=== PATIENT | female | born 1945 | race Caucasian/White ===

== ENCOUNTER 2023-01-08 15:44 | Emergency (ER) | payer SELFPAY ==
[~2023-01-08] VITALS: Ht 149.9 cm; Wt 53.1 kg
[2023-01-08 16:18] VITALS: BP 166/95
--- NOTE | 2023-01-08 16:27 | NUR ---
blood glucose 164
[2023-01-08] MEDS ORDERED: NACL 0.9% 1,000 ML IV SCH (17:35)
[2023-01-08 17:52] LABS: BASOPHILS # (AUTO) 0.1 K/uL (0.00-0.22); BASOPHILS % (AUTO) 0.5 % (0.0-2.0); EOSINOPHILS # (AUTO) 1.3 K/uL (0-0.4); EOSINOPHILS % (AUTO) 12.9 % (0.0-4.0); HEMATOCRIT 37.4 % (36-48); HEMOGLOBIN 12.4 g/dL (12.0-16.0); MEAN CORPUSCULAR HEMOGLOBIN 29 pg (27-31); MEAN CORPUSCULAR HGB CONC 33 g/dL (33-37); MEAN CORPUSCULAR VOLUME 86.4 fL (80-94); MONOCYTES # (AUTO) 0.7 K/uL (0.8-1.0); MONOCYTES % (AUTO) 7.2 % (1.7-9.3); NEUTROPHILS # (AUTO) 4.7 K/uL (1.8-7.7); NEUTROPHILS % (AUTO) 48.4 % (42.2-75.2); PLATELET COUNT (AUTO) 334 K/uL (140-450); RED BLOOD CELL COUNT(AUTO) 4.33 MIL/uL (4.20-5.40); RED CELL DISTRIBUTION WIDTH 15.3 % (11.6-13.7); WHITE BLOOD COUNT (AUTO) 9.7 K/uL (4.8-10.8)
[2023-01-08 18:16] LABS: ALBUMIN 3.6 g/dL (3.4-5.0); ANION GAP 15.5 (8-16); ASPARTATE AMINOTRANSFERASE 27 U/L (15-37); CHLORIDE 101 mmol/L (98-107); CREATININE 0.8 mg/dL (0.6-1.3); GLUCOSE 136 mg/dL (74-106); POTASSIUM 4.5 mmol/L (3.5-5.1); SODIUM SERUM 137 mmol/L (136-145); TOTAL BILIRUBIN 0.3 mg/dL (0.0-1.0); UREA NITROGEN, BLOOD 21 mg/dL (7-18)
--- NOTE | 2023-01-08 20:05 | NUR ---
Patient endorsed by Kris AGUILAR. Patient alert and comfortable in bed. No complaints of pain or signs of distress.
[2023-01-08] MEDS ORDERED: BACITRACIN OINT 500 UNITS/GM PKT TP ONE (20:35)
[2023-01-08] MEDS ORDERED: [UNRECOGNIZED DRUG - CODE] PO (20:38)
[2023-01-08] MEDS ORDERED: ALPH600C2 PO (20:38)
[2023-01-08] MEDS ORDERED: [UNRECOGNIZED DRUG - CODE] PO (20:38)
[2023-01-08] MEDS ORDERED: DULO60EC1 PO (20:38)
[2023-01-08] MEDS ORDERED: GABA300C PO (20:41)
[2023-01-08] MEDS ORDERED: CEPH-588 PO (20:41)
[2023-01-08 21:10] VITALS: BP 184/92
--- NOTE | 2023-01-08 21:10 | NUR ---
Patient discharged with v/s stable. Written and verbal after care instructions given and explained. New rx keflex and gabapentin. Patient verbalized understanding. Ambulatory with steady gait. Accompanied by daughter. All questions addressed prior to discharge. Advised to follow up with PMD.
== END 2023-01-08 21:10 | disposition home or self-care (01) ==
LOC: MED 15:44 → EDBD 15:44 → MED 21:10
DX: E11.621 Type 2 diabetes mellitus with foot ulcer (principal); Z20.822 Contact with and (suspected) exposure to COVID-19; I10 Essential (primary) hypertension; Z79.4 Long term (current) use of insulin; Z79.899 Other long term (current) drug therapy
CPT/HCPCS: 36415; 71045; 73630; 80053; 82550; 82948; 83605; 84484; 85025; 87040; 87086; 87426; 93005; 96360; 99285; J7030; Q0092

== ENCOUNTER 2023-01-14 21:48 | Inpatient (IN) | payer SELFPAY ==
[~2023-01-14] VITALS: Ht 149.9 cm; Wt 53.1 kg
[~2023-01-14 21:48] MED LIST: ALPH600C2 PO; CEPH-588 PO; DULO60EC1 PO; GABA300C PO; [UNRECOGNIZED DRUG - CODE] PO; [UNRECOGNIZED DRUG - CODE] PO
[2023-01-14 21:50] VITALS: BP 102/88
--- NOTE | 2023-01-14 21:50 | NUR ---
TO BED AMBULATORY
--- NOTE | 2023-01-14 22:17 | NUR ---
Patient resting in bed, A/Ox4, chest rise and fall symmetrical, no s/s of distress, on monitor.
--- NOTE | 2023-01-14 22:19 | NUR ---
Dr. Agustin at bedside assessing patient, patient's daughter present.
[2023-01-14 22:58] LABS: BASOPHILS # (AUTO) 0.1 K/uL (0.00-0.22); BASOPHILS % (AUTO) 0.8 % (0.0-2.0); EOSINOPHILS # (AUTO) 1.2 K/uL (0-0.4); EOSINOPHILS % (AUTO) 13.2 % (0.0-4.0); HEMATOCRIT 38.5 % (36-48); HEMOGLOBIN 12.6 g/dL (12.0-16.0); LYMPHOCYTES # (AUTO) 2.4 K/uL (2.5-16.5); LYMPHOCYTES % (AUTO) 26.9 % (20.5-51.1); MEAN CORPUSCULAR HEMOGLOBIN 28 pg (27-31); MEAN CORPUSCULAR HGB CONC 33 g/dL (33-37); MEAN CORPUSCULAR VOLUME 86.3 fL (80-94); MONOCYTES # (AUTO) 0.7 K/uL (0.8-1.0); MONOCYTES % (AUTO) 8.1 % (1.7-9.3); NEUTROPHILS # (AUTO) 4.6 K/uL (1.8-7.7); PLATELET COUNT (AUTO) 340 K/uL (140-450); RED BLOOD CELL COUNT(AUTO) 4.45 MIL/uL (4.20-5.40); RED CELL DISTRIBUTION WIDTH 15.6 % (11.6-13.7)
[2023-01-14] MEDS ORDERED: BACITRACIN OINT 500 UNITS/GM PKT TP ONE (23:20)
[2023-01-14] MEDS ORDERED: FUROSEMIDE 20 MG/2 ML VIAL IVP ONE (23:20)
[2023-01-14] MEDS ORDERED: traMADol 50 MG TAB PO ONE (23:20)
[2023-01-14 23:28] LABS: ALBUMIN 3.5 g/dL (3.4-5.0); ANION GAP 12.4 (8-16); ASPARTATE AMINOTRANSFERASE 60 U/L (15-37); CARBON DIOXIDE 27.1 mmol/L (21-32); CHLORIDE 102 mmol/L (98-107); CREATININE 0.7 mg/dL (0.6-1.3); GLUCOSE 225 mg/dL (74-106); POTASSIUM 4.5 mmol/L (3.5-5.1); SODIUM SERUM 137 mmol/L (136-145); TOTAL BILIRUBIN 0.2 mg/dL (0.0-1.0); UREA NITROGEN, BLOOD 31 mg/dL (7-18)
[2023-01-14] MEDS ORDERED: ASPIRIN 81 MG TAB.CHEW PO ONE (23:35)
[2023-01-14] MEDS ORDERED: DOCUSATE SODIUM 100 MG GELCAP PO PRN (23:55)
[2023-01-14] MEDS ORDERED: guaiFENesin DM 200/20 MG-10 ML 10 ML UDC PO PRN (23:55)
[2023-01-14] MEDS ORDERED: ONDANSETRON 4 MG/2 ML VIAL IM/IVP PRN (23:55)
[2023-01-14] MEDS ORDERED: POTASSIUM CHLORIDE 10 MEQ TABER PO PRN (23:55)
[2023-01-14] MEDS ORDERED: GABAPENTIN 300 MG CAP PO PRN (23:55)
[2023-01-14] MEDS ORDERED: ZOLPIDEM 5 MG TAB PO PRN (23:55)
[2023-01-14] MEDS ORDERED: ACETAMINOPHEN 325 MG TAB PO PRN (23:55)
[2023-01-15 00:12] LABS: PROTHROMBIN TIME 10.7 secs (10.8-13.4)
--- NOTE | 2023-01-15 00:19 | NUR ---
Patient resting in bed, A/Ox4, chest rise and fall symmetrical, no s/s of distress, on monitor.
[2023-01-15 00:26] LABS: CHOL/HDL RATIO 3.9 (1-4.5); MAGNESIUM 2.7 mg/dL (1.8-2.4); PHOSPHORUS 4.1 mg/dL (2.5-4.9)
[2023-01-15 00:27] LABS: FREE T4 (FREE THYROXINE) 0.86 ng/dL (0.76-1.46); THYROID STIMULATING HORMONE 7.84 uIU/mL (0.34-3.74)
[2023-01-15 00:48] LABS: APPEARANCE,URINE SL CLOUDY (CLEAR); BILIRUBIN,URINE NEGATIVE (NEGATIVE); BLOOD, URINE 1+ (NEGATIVE); COLOR,URINE YELLOW (YELLOW); LEUKOCYTE ESTERASE ,URINE 1+ (NEGATIVE); NITRITE, URINE NEGATIVE (NEGATIVE); PH,URINE 6.5 (5.0-9.0); UGLUCOSE 3+ (NEGATIVE)
[2023-01-15] MEDS ORDERED: lisinopriL 20 MG TAB PO STA (01:02)
--- NOTE | 2023-01-15 01:04 | NUR ---
Patient resting in bed, alert and awake, chest rise and fall symmetrical, no c/o pain or s/s of distress, on monitor. Addendum: 01/15/23 at 0105 by [id number] Patient resting in bed, A/Ox4, chest rise and fall symmetrical, no c/o pain or s/s of distress, on monitor.
[2023-01-15 01:35] LABS: RBC,URINE 0-5 /HPF (0-5)
[2023-01-15] MEDS ORDERED: DEXTROSE 50% 50 ML SYR IVP PRN ×2 (01:35→08:30)
[2023-01-15] MEDS ORDERED: INSULIN LISPRO SLIDING SCALE 100 UNITS/ML VIAL SUBQ PRN (01:35)
--- NOTE | 2023-01-15 01:42 | NUR ---
Dr. Comer contacted via phone for sliding sclae order. Dr. Comer responded with, "How is this important?" Dr. Comer informed that staff is attemtping to cover patient's blood sugar, blood sugar lab draw result was 225, and pt as a hx of DM. Dr. Comer responded with "Non emergent." Telemetry Nurse Liza RN verbally informed. Telemetry Nurse Liza RN verbalized understanding.
--- NOTE | 2023-01-15 01:45 | NUR ---
Patient will be admitted to care of Dr. Comer. Admited to telemetry. Will go to room 122B. Belongings list completed. Report to Telemetry Nurse Liza AGUILAR. Telemetry Nurse Liza AGUILAR verbalized understanding of report, no further questions.
--- NOTE | 2023-01-15 01:54 | NUR ---
ADMITTED A 77 Y/O FEMALE FROM ER VIA [facility] WITH THE CC: OF SOB 7 DAYS AGO, DX: CHF, PNA, PNEUMOTHORAX, ACS, DIABETIC ULCERS. PATIENT IS ALERT ORIENTED KINYARWANDA SPEAKING. NO ACUTE DISTRESS NOTED. ON 3L O2 VIA NC SATING 98%. ABLE TO AMBULATE WITHOUT ASSIST. CALL LIGHT WITHIN REACH. BED WHEELS LOCKED IN LOW POSITION.
[2023-01-15] MEDS: HYDROcodone/APAP 7.5/325 MG 1 TAB PO PRN ×3 (03:18→20:47)
[2023-01-15 04:00] VITALS: BP 141/77
[2023-01-15 05:27] LABS: BASOPHILS # (AUTO) 0.1 K/uL (0.00-0.22); BASOPHILS % (AUTO) 0.7 % (0.0-2.0); EOSINOPHILS # (AUTO) 1.4 K/uL (0-0.4); EOSINOPHILS % (AUTO) 11.5 % (0.0-4.0); HEMATOCRIT 36.9 % (36-48); HEMOGLOBIN 12.1 g/dL (12.0-16.0); MEAN CORPUSCULAR HEMOGLOBIN 29 pg (27-31); MEAN CORPUSCULAR HGB CONC 33 g/dL (33-37); MEAN CORPUSCULAR VOLUME 86.6 fL (80-94); MONOCYTES % (AUTO) 8.1 % (1.7-9.3); NEUTROPHILS # (AUTO) 6.6 K/uL (1.8-7.7); NEUTROPHILS % (AUTO) 54.7 % (42.2-75.2); PLATELET COUNT (AUTO) 344 K/uL (140-450); RED BLOOD CELL COUNT(AUTO) 4.26 MIL/uL (4.20-5.40); RED CELL DISTRIBUTION WIDTH 15.4 % (11.6-13.7)
[2023-01-15 06:23] LABS: CARBON DIOXIDE 27.8 mmol/L (21-32); CHLORIDE 102 mmol/L (98-107); CREATININE 0.8 mg/dL (0.6-1.3); GLUCOSE 207 mg/dL (74-106); POTASSIUM 3.8 mmol/L (3.5-5.1); SODIUM SERUM 138 mmol/L (136-145); UREA NITROGEN, BLOOD 27 mg/dL (7-18)
--- NOTE | 2023-01-15 07:00 | NUR ---
RECEIVED BEDSIDE REPORT FROM NIGHTSHIFT NURSE. PT IS ASLEEP IN BED, WOKE TO NAME AND TOUCH, NO SIGNS OF DISTRESS. VITAL SIGNS STABLE. REORIENTED PT TO CALL LIGHT, MADE SURE WITHIN REACH. BED IN LOWEST POSITION. NO FURTHER NEEDS ARE TO BE MET AT THIS TIME, WILL CONTINUE WITH PT CARE.
--- NOTE | 2023-01-15 07:16 | NUR ---
BEDSIDE REPORT GIVEN TO AM NURSE FOR CONTINUITY OF CARE.
[2023-01-15] MEDS ORDERED: BLOOD GLUCOSE MONITORING 1 DEV DEV FS SCH (07:30)
[2023-01-15 08:00] VITALS: BP 121/85
--- NOTE | 2023-01-15 08:52 | NUR ---
PATIENT HAS BEEN SCREENED AND CATEGORIZED HIGH NUTRITION RISK. PATIENT WILL BE SEEN WITHIN 1-2 DAYS OF ADMISSION. 01/15/23-01/16/[address]
--- NOTE | 2023-01-15 08:56 | NUR ---
DC PLANN[age] YRS OLD FEMALE PATIENT WAS ADMITTED FROM HOME WITH A DX OF ACUTE CHF EXACERBATION, NSTEMI AND HYPOXIA. PATIENT HAS A HX OF DM, HTN, CARDIAC STENT PLACEMENT. CXR SHOWED BILATERAL LOWER LOBE PATCHY OPACITIES. RAPID COVID TEST NEGATIVE. URINE AND BLOOD CULTURE PENDING. ADMINISTERED IV ABX ROCEPHIN AND CONTINUED HOME MEDS. CONSULTED WITH WOUND CARE, AND CARDIO. DC PLAN TO RETURN HOME WHEN STABLE. CM TO FOLLOW
[2023-01-15] MEDS ORDERED: METOPROLOL 25 MG TAB PO SCH (09:00)
[2023-01-15] MEDS ORDERED: FUROSEMIDE 40 MG/4 ML VIAL IVP SCH (09:00)
--- NOTE | 2023-01-15 09:05 | NUR ---
FNS CONSULT FOR WOUNDS RECEIVED ON 01/15/23, PATIENT WILL BE SEEN WITHIN 1-2 DAYS OF ADMISSION.
--- NOTE | 2023-01-15 09:05 | NUR ---
WOUND CARE NOTE SKIN ASSESSMENT DONE WITH THIS 77 Y/O PT. AAX4. PT. ADMITTED WITH MULTIPLE ULCERS TO LEFT FOOT. POC DISCUSSED WITH DR. CROFT AT BEDSIDE AND RECOMMEND ARTERIAL ULTRASOUND TO LLE AND PODIATRY CONSULT. POC DISCUSSED WITH PRIMARY RN BAILEY. -PVD LEFT LATERAL FOOT 2 ULCERATIONS UN-STAGEABLE SITE #1 2.5X2.5CM WOUND BED 100% BROWN AND MONTALVO COLOR SLOUGH TISSUE, MILD ODOR SMALL AMOUNT PURULENT DRAINAGE, FERNANDO-WOUND SKIN DRY AND CLEAN. SITE #2 WITH 2X2CM. WOUND BEDS 100% BROWN/MONTALVO, MOIST SLOUGH TISSUE, MILD ODOR SMALL AMOUNT PURULENT DRAINAGE, FERNANDO-WOUND SKIN DRY AND CLEAN. PAIN 3/10 -PVD UN-STAGEABLE TO LATERAL ASPECT OF HEEL 2X4CM WOUND BED 50% BROWN AND MONTALVO COLOR SLOUGH TISSUE,50 % RED TISSUE, NO ODOR, SMALL AMOUNT PURULENT DRAINAGE, FERNANDO-WOUND SKIN DRY AND CLEAN. -PVD LEFT HEEL 1X1X0.3CM WOUND BED 100% PINK TISSUE, NO ODOR, NO DRAINAGE, FERNANDO-WOUND SKIN DRY AND CLEAN RECOMMENDATIONS: -WOUND CX LEFT FOOT -PODIATRY CONSULT -LEFT FOOT AND HEEL WOUNDS CLEANSE WITH WOUND CLEANSING SOLUTION, PAT DRY, APPLY THERAHONEY GEL WITH OIL EMULSION DRESSING, APPLY Z-GUARD TO FERNANDO-WOUND SKIN MASD COVER WITH DRY DRESSING QD AND PRN IF SOILING -HEEL RAISER TO LEFT HEEL WITH OFFLOADING PLEASE CONTACT WOUND CARE NURSE FOR ANY QUESTION AND CHANGE OF WOUND CONDITION.
--- NOTE | 2023-01-15 09:10 | NUR ---
PT SEEN BY WOUND CARE NURSE. WOUND CARE/WOUND ASSESSMENT DONE BY WOUND CARE NURSE. RECREATIONAL PROGRAMS DIRECTOR CONSULT ORDERED, INFORMED PODIATRY MD OF CONSULT. WILL CONTINUE WITH PT CARE.
[2023-01-15] MEDS: DULoxetine 30 MG CAPDR PO SCH ×2 (09:46→20:46)
[2023-01-15] MEDS: PANTOPRAZOLE 40 MG TABEC PO SCH (09:47)
[2023-01-15] MEDS: lisinopriL 20 MG TAB PO SCH (09:47)
[2023-01-15 12:00] VITALS: BP 122/82
[2023-01-15] MEDS: BLOOD GLUCOSE MONITORING 1 DEV DEV FS SCH ×3 (12:30→20:49)
[2023-01-15] MEDS: INSULIN LISPRO SLIDING SCALE 100 UNITS/ML VIAL SUBQ PRN ×2 (12:46→20:51)
--- NOTE | 2023-01-15 14:05 | NUR ---
01/15/23 RD INITIAL ASSESSMENT COMPLETED PLEASE REFER TO NUTRITION ASSESSMENT UNDER CARE ACTIVITY FOR ESTIMATED NUTRITIONAL NEEDS. 1. CONTINUE CARDIAC AND CCHO DIET TOLERATED 2. RD RECOMMENDS GLUCERNA BID FOR NUTRIENT INTAKE DUE TO LOW PO INTAKE. THIS WILL PROVIDE 440 CALORIES AND 20 GRAMS OF PROTEIN. PLEASE DISCONTINUE ONCE PATIENT STARTS TO EAT 50% OR MORE OF HER MEALS. 3. RD RECOMMENDS PROSOURCE BID FOR WOUNDS WHICH WILL PROVIDE 120 CALORIES AND 30 GRAMS OF PROTEIN. 4. RD ENCOURAGES PATIENT TO CONTINUE TO FOLLOW A DIABETIC DIET THAT SHE WAS EDUCATED ON ONCE SHE LEAVES THE HOSPITAL. 5. RD TO FOLLOW-UP 3-5 DAYS, MODERATE RISK KRUNAL DASH RD
[2023-01-15 14:19] LABS: BARBITURATE, URINE NEGATIVE ng/ml (NEG <=200); BENZODIAZEPINE, URINE NEGATIVE ng/mL (NEG <=200); CANNABINOID, URINE NEGATIVE ng/mL (NEG <=50); COCAINE, URINE NEGATIVE ng/mL (NEG <=300); PHENCYCLIDINE SCREEN,URINE NEGATIVE ng/mL (NEG <=25)
[2023-01-15 14:20] LABS: OPIATE, URINE POSITIVE ng/mL (NEG <=2000)
[2023-01-15] MEDS ORDERED: THERAHONEY GEL 42.5 GM TP PRN (14:35)
[2023-01-15 16:00] VITALS: BP 149/67
[2023-01-15] MEDS ORDERED: ATORVASTATIN 20 MG TAB PO SCH (17:00)
[2023-01-15] MEDS: FUROSEMIDE 40 MG/4 ML VIAL IVP SCH (17:26)
--- NOTE | 2023-01-15 19:27 | NUR ---
ENDORSED TO NIGHTSHIFT NURSE FOR CONTINUITY OF CARE. PT IS RESTING IN BED, STABLE, NO SIGNS OF DISTRESS, NO REPORTS OF PAIN/DISCOMFORT AT THIS TIME. PT DAUGHTER AT BEDSIDE. NO FURTHER NEEDS ARE TO BE MET, NIGHTSHIFT NURSE WILL CONTINUE WITH PT CARE.
[2023-01-15 20:00] VITALS: BP 153/77
[2023-01-15] MEDS: GABAPENTIN 300 MG CAP PO SCH (20:45)
--- NOTE | 2023-01-15 20:45 | NUR ---
ALL 2100 SCHEDULED DUE MEDICATIONS ADMINISTERED. PATIENT ALERT ORIENTED LUXEMBOURGISH SPEAKING, RESTING IN BED. NO SOB NOTED. ON 3L NC TOLERATING WELL. CALL LIGHT IN REACH.
[2023-01-15] MEDS: carvediloL 6.25 MG TAB PO SCH (20:46)
[2023-01-16] MEDS: HYDROcodone/APAP 7.5/325 MG 1 TAB PO PRN ×3 (01:25→15:58)
[2023-01-16 04:00] VITALS: BP 142/77
[2023-01-16 05:26] LABS: BASOPHILS # (AUTO) 0.1 K/uL (0.00-0.22); BASOPHILS % (AUTO) 0.7 % (0.0-2.0); EOSINOPHILS # (AUTO) 1.2 K/uL (0-0.4); EOSINOPHILS % (AUTO) 12.4 % (0.0-4.0); HEMATOCRIT 37.6 % (36-48); HEMOGLOBIN 12.7 g/dL (12.0-16.0); LYMPHOCYTES # (AUTO) 2.8 K/uL (2.5-16.5); LYMPHOCYTES % (AUTO) 28.4 % (20.5-51.1); MEAN CORPUSCULAR HEMOGLOBIN 29 pg (27-31); MEAN CORPUSCULAR HGB CONC 34 g/dL (33-37); MONOCYTES # (AUTO) 0.7 K/uL (0.8-1.0); MONOCYTES % (AUTO) 7.3 % (1.7-9.3); NEUTROPHILS % (AUTO) 51.2 % (42.2-75.2); PLATELET COUNT (AUTO) 335 K/uL (140-450); RED BLOOD CELL COUNT(AUTO) 4.37 MIL/uL (4.20-5.40); RED CELL DISTRIBUTION WIDTH 15.3 % (11.6-13.7); WHITE BLOOD COUNT (AUTO) 9.7 K/uL (4.8-10.8)
[2023-01-16 05:40] LABS: ANION GAP 11.5 (8-16); CARBON DIOXIDE 29.4 mmol/L (21-32); CHLORIDE 100 mmol/L (98-107); CREATININE 0.7 mg/dL (0.6-1.3); GLUCOSE 145 mg/dL (74-106); POTASSIUM 3.9 mmol/L (3.5-5.1); SODIUM SERUM 137 mmol/L (136-145); UREA NITROGEN, BLOOD 23 mg/dL (7-18)
[2023-01-16 08:00] VITALS: BP 148/69
[2023-01-16] MEDS: BLOOD GLUCOSE MONITORING 1 DEV DEV FS SCH ×4 (08:19→21:00)
[2023-01-16 09:06] LABS: T4 (THYROXINE) 6.5 ug/dL (4.5-12.0)
[2023-01-16] MEDS: FUROSEMIDE 40 MG/4 ML VIAL IVP SCH ×2 (10:17→17:46)
[2023-01-16] MEDS: ECOTRIN 81 MG TABEC PO SCH (10:18)
[2023-01-16] MEDS: ATORVASTATIN 20 MG TAB PO SCH (10:18)
[2023-01-16] MEDS: lisinopriL 20 MG TAB PO SCH (10:18)
[2023-01-16] MEDS: DULoxetine 30 MG CAPDR PO SCH ×2 (10:18→20:58)
[2023-01-16] MEDS: carvediloL 6.25 MG TAB PO SCH ×2 (10:19→20:58)
[2023-01-16] MEDS: PANTOPRAZOLE 40 MG TABEC PO SCH (10:19)
[2023-01-16] MEDS: GABAPENTIN 300 MG CAP PO SCH ×2 (10:19→20:58)
[2023-01-16] MEDS ORDERED: THERAHONEY GEL 42.5 GM TP SCH (13:00)
[2023-01-16] MEDS: INSULIN LISPRO SLIDING SCALE 100 UNITS/ML VIAL SUBQ PRN (14:12)
[2023-01-16 16:00] VITALS: BP 129/65
--- NOTE | 2023-01-16 19:42 | NUR ---
AFTER 1630 BG CHECK, B. PROVIDED JUICE AND SUGAR PACKETS FOR PT. PT BG NOW STABLE. ENDORSED TO NIGHTSHIFT NURSE FOR CONTINUITY OF CARE. PT RESTING IN BED, AWAKE, STABLE, NO SIGNS OF DISTRESS, NO REPORTS OF PAIN/DISCOMFORT. CALL LIGHT WITHIN REACH.
--- NOTE | 2023-01-16 19:43 | NUR ---
RECEIVED REPORT FROM DAY SHIFT RN FOR CONTINUITY OF CARE. PT IS RESTING IN BED. AAOX4 BERMUDIAN SPEAKER. PT HAS LEFT AC 20 GAUGE SALINE LOCK. PT IS AMBULATORY. GAIT STEADY. DRESSING ON LEFT FOOT. POC DISCUSSED. WILL CONTINUE TO MONITOR THE PT.
[2023-01-16 20:00] VITALS: BP 126/75
--- NOTE | 2023-01-16 23:05 | NUR ---
XRAY IN ROOM WITH PT TO TAKE XRAY OF THE LEFT FOOT.
[2023-01-17 04:00] VITALS: BP 143/60
[2023-01-17] MEDS: HYDROcodone/APAP 7.5/325 MG 1 TAB PO PRN ×2 (04:59→10:36)
--- NOTE | 2023-01-17 04:59 | NUR ---
PT COMPLAINED OF 5/10 PAIN ON LEFT FOOT. NORCO WAS GIVEN. NO OTHER COMPLAINS.
[2023-01-17 05:38] LABS: BASOPHILS % (AUTO) 0.4 % (0.0-2.0); EOSINOPHILS # (AUTO) 1.1 K/uL (0-0.4); EOSINOPHILS % (AUTO) 10.7 % (0.0-4.0); HEMATOCRIT 36.9 % (36-48); HEMOGLOBIN 12.3 g/dL (12.0-16.0); LYMPHOCYTES # (AUTO) 2.9 K/uL (2.5-16.5); LYMPHOCYTES % (AUTO) 28.4 % (20.5-51.1); MEAN CORPUSCULAR HEMOGLOBIN 29 pg (27-31); MEAN CORPUSCULAR HGB CONC 34 g/dL (33-37); MEAN CORPUSCULAR VOLUME 85.3 fL (80-94); MONOCYTES # (AUTO) 0.7 K/uL (0.8-1.0); MONOCYTES % (AUTO) 7.2 % (1.7-9.3); NEUTROPHILS # (AUTO) 5.4 K/uL (1.8-7.7); NEUTROPHILS % (AUTO) 53.3 % (42.2-75.2); PLATELET COUNT (AUTO) 360 K/uL (140-450); RED BLOOD CELL COUNT(AUTO) 4.32 MIL/uL (4.20-5.40); WHITE BLOOD COUNT (AUTO) 10.2 K/uL (4.8-10.8)
[2023-01-17 06:05] LABS: ANION GAP 11.5 (8-16); CARBON DIOXIDE 28.3 mmol/L (21-32); CHLORIDE 97 mmol/L (98-107); CREATININE 0.8 mg/dL (0.6-1.3); GLUCOSE 174 mg/dL (74-106); POTASSIUM 3.8 mmol/L (3.5-5.1); SODIUM SERUM 133 mmol/L (136-145); UREA NITROGEN, BLOOD 23 mg/dL (7-18)
[2023-01-17] MEDS: INSULIN LISPRO SLIDING SCALE 100 UNITS/ML VIAL SUBQ PRN ×2 (06:32→13:40)
[2023-01-17] MEDS: BLOOD GLUCOSE MONITORING 1 DEV DEV FS SCH ×2 (06:33→12:12)
--- NOTE | 2023-01-17 07:11 | NUR ---
ENDORSED PT TO DAY SHIFT RN FOR CONTINUITY OF CARE. PT IS STABLE.
[2023-01-17 08:00] VITALS: BP 145/64
[2023-01-17] MEDS: PANTOPRAZOLE 40 MG TABEC PO SCH (09:00)
[2023-01-17] MEDS: DULoxetine 30 MG CAPDR PO SCH (09:55)
[2023-01-17] MEDS: GABAPENTIN 300 MG CAP PO SCH (09:57)
[2023-01-17] MEDS: lisinopriL 20 MG TAB PO SCH (09:57)
[2023-01-17] MEDS: carvediloL 6.25 MG TAB PO SCH (09:57)
[2023-01-17] MEDS: ECOTRIN 81 MG TABEC PO SCH (09:57)
[2023-01-17] MEDS: ATORVASTATIN 20 MG TAB PO SCH (09:58)
[2023-01-17] MEDS: FUROSEMIDE 40 MG/4 ML VIAL IVP SCH (09:58)
[2023-01-17] MEDS ORDERED: FURO40TA9 PO (12:23)
[2023-01-17] MEDS ORDERED: LISI-487 PO (12:23)
[2023-01-17] MEDS ORDERED: CARV6.25 PO (12:23)
[2023-01-17] MEDS ORDERED: ATOR40TA PO (12:23)
[2023-01-17] MEDS ORDERED: CLOP75TA55 PO (12:23)
[2023-01-17] MEDS ORDERED: ASPI-1749 PO (12:23)
[2023-01-17] MEDS ORDERED: AMOX-999 PO (12:23)
[2023-01-17 12:37] VITALS: BP 101/69
--- NOTE | 2023-01-17 13:35 | NUR ---
CALLED [facility] LOCATED AT [address] [phone]. SPOKE WITH AUGUSTINE WHO WAS ABLE TO SCHEDULE A FOLLOW UP APPOINTMENT FOR 01/20/23 AT 1100. CALLED GRANDDAUGHTER KISHAN AND INFORMED HER OF THE ABOVE INFORMATION.
== END 2023-01-17 14:45 | disposition home or self-care (01) | DRG 280 ==
LOC: MED 21:48 → MTU 23:58
PROVIDERS: ADMIT Family Medicine; ATTEND Family Medicine
DX: I11.0 Hypertensive heart disease with heart failure (principal); I21.A1 Myocardial infarction type 2; I50.43 Acute on chronic combined systolic (congestive) and diastolic (congestive) heart failure; J96.00 Acute respiratory failure, unspecified whether with hypoxia or hypercapnia; J18.9 Pneumonia, unspecified organism; L03.116 Cellulitis of left lower limb; E03.8 Other specified hypothyroidism; Z20.822 Contact with and (suspected) exposure to COVID-19; I25.5 Ischemic cardiomyopathy; E11.621 Type 2 diabetes mellitus with foot ulcer; I25.10 Atherosclerotic heart disease of native coronary artery without angina pectoris; E78.5 Hyperlipidemia, unspecified; Z95.5 Presence of coronary angioplasty implant and graft
CPT/HCPCS: 36415; 71045; 73620; 80048; 80053; 80305; 81001; 82150; 82948; 83036; 83605; 83690; 83735; 83880; 84100; 84436; 84439; 84443; 84479; 84484; 85025; 85610; 85730; 87040; 87070; 87075; 87081; 87086; 93005; 93925; 93970; 96374; 99285; J0696; J1815; J1940; J7060; Q0092

== ENCOUNTER 2023-01-28 09:33 | Inpatient (IN) | payer SELFPAY ==
[2023-01-28] VITALS (7 sets, daily range): BP systolic 130–156; BP diastolic 60–79; PULSE 68–87; RESP 18–20; TEMP 97.4–98; O2SAT 97–99
[~2023-01-28] VITALS: Ht 152.4 cm; Wt 51.3 kg
[~2023-01-28 09:33] MED LIST changes: +AMOX-999 PO; +ASPI-1749 PO; +ATOR40TA PO; +CARV6.25 PO; -CEPH-588 PO; +CLOP75TA55 PO; +FURO40TA9 PO; +LISI-487 PO
[2023-01-28] MEDS ORDERED: MORPHINE SULFATE 2 MG/ML SYR IVP ONE (10:05)
--- NOTE | 2023-01-28 10:28 | NUR ---
77 YO F PRESENTS W/WEAKNESS, SOB X 1 WK WORSE TODAY. PT DENIES CP, N,V,D,C, FEVER, MENON, FLU SYMPTOMS. PT STATES SHE HAD A HEART ATTACK 06/2022. LT FOOT DIABETIC ULCER X 2 MTHS. SAFETY MAINTAINED. HX: DM, HTN
--- NOTE | 2023-01-28 10:41 | NUR ---
PT W/HYPOXIA - WHEN FALLING ASLEEP, AWAKE 94-98 Addendum: 01/28/23 at 1048 by [email or web address] INFORMED OF PT HYPOXIA
--- NOTE | 2023-01-28 10:44 | NUR ---
SWABBED FOR INFLUENZA A/B, WALKED TO LAB
[2023-01-28 10:45] LABS: BASOPHILS # (AUTO) 0.1 K/uL (0.00-0.22); BASOPHILS % (AUTO) 0.7 % (0.0-2.0); EOSINOPHILS % (AUTO) 11.4 % (0.0-4.0); HEMATOCRIT 36.1 % (36-48); LYMPHOCYTES # (AUTO) 1.9 K/uL (2.5-16.5); LYMPHOCYTES % (AUTO) 20.6 % (20.5-51.1); MEAN CORPUSCULAR HEMOGLOBIN 28 pg (27-31); MEAN CORPUSCULAR HGB CONC 33 g/dL (33-37); MEAN CORPUSCULAR VOLUME 84.4 fL (80-94); MONOCYTES # (AUTO) 0.7 K/uL (0.8-1.0); MONOCYTES % (AUTO) 7.8 % (1.7-9.3); NEUTROPHILS # (AUTO) 5.4 K/uL (1.8-7.7); NEUTROPHILS % (AUTO) 59.5 % (42.2-75.2); PLATELET COUNT (AUTO) 363 K/uL (140-450); RED BLOOD CELL COUNT(AUTO) 4.27 MIL/uL (4.20-5.40); WHITE BLOOD COUNT (AUTO) 9.1 K/uL (4.8-10.8)
[2023-01-28 10:58] LABS: MAGNESIUM 1.9 mg/dL (1.8-2.4)
[2023-01-28 11:01] LABS: ALBUMIN 3.6 g/dL (3.4-5.0); ANION GAP 14.4 (8-16); ASPARTATE AMINOTRANSFERASE 21 U/L (15-37); CARBON DIOXIDE 25.1 mmol/L (21-32); CHLORIDE 101 mmol/L (98-107); CREATININE 0.9 mg/dL (0.6-1.3); GLUCOSE 174 mg/dL (74-106); POTASSIUM 3.5 mmol/L (3.5-5.1); SODIUM SERUM 137 mmol/L (136-145); TOTAL BILIRUBIN 0.5 mg/dL (0.0-1.0); UREA NITROGEN, BLOOD 32 mg/dL (7-18)
[2023-01-28 11:17] LABS: C-REACTIVE PROTEIN QUANT < 0.2 mg/dL (0.0-0.9)
[2023-01-28] MEDS ORDERED: FUROSEMIDE 40 MG/4 ML VIAL IVP ONE (11:25)
[2023-01-28] MEDS ORDERED: HYDROcodone/APAP 5/325 MG 1 TAB TAB PO ONE (12:15)
[2023-01-28 12:35] LABS: APPEARANCE,URINE HAZY (CLEAR); COLOR,URINE YELLOW (YELLOW)
[2023-01-28 12:39] LABS: BILIRUBIN,URINE NEGATIVE (NEGATIVE); BLOOD, URINE NEGATIVE (NEGATIVE); LEUKOCYTE ESTERASE ,URINE NEGATIVE (NEGATIVE); NITRITE, URINE NEGATIVE (NEGATIVE); UGLUCOSE 3+ (NEGATIVE)
[2023-01-28] MEDS ORDERED: ONDANSETRON 4 MG/2 ML VIAL IVP PRN (13:20)
[2023-01-28] MEDS ORDERED: GABAPENTIN 300 MG CAP PO PRN (13:20)
[2023-01-28 13:37] LABS: CALCIUM OXALATE CRYSTALS,UR None Seen /HPF (None Seen); COARSE GRANULAR CASTS,URINE None Seen /LPF (None Seen); FINE GRANULAR CASTS,URINE None Seen /LPF (None Seen); HYALINE CASTS, URINE None Seen /LPF (None Seen); OTHER CASTS, URINE None Seen /LPF (None Seen); OTHER CRYSTALS,URINE None Seen /HPF (None Seen); RBC,URINE 0-5 /HPF (0-5); RED BLOOD CELL CASTS,URINE None Seen /LPF (None Seen); TRICHOMONAS,URINE None Seen /HPF (None Seen); TRIPLE PHOSPHATE CRYSTAL,UR None Seen /HPF (None Seen); URIC ACID CRYSTALS,URINE None Seen /HPF (None Seen); URINE AMORPHOUS URATE None Seen /HPF (None Seen); WAXY CASTS,URINE None Seen /LPF (None Seen); YEAST,URINE None Seen /HPF (None Seen)
--- NOTE | 2023-01-28 13:56 | NUR ---
GLUCOSE 159, MD AWARE
--- NOTE | 2023-01-28 15:10 | NUR ---
Patient will be admitted to care of NEELY. Admited to TELE. Will go to room 124B. Belongings list completed. Report to FLORENTIN AGUILAR.
--- NOTE | 2023-01-28 15:15 | NUR ---
PATIENT HAS BEEN SCREENED AND CATEGORIZED MODERATE NUTRITION RISK. PATIENT WILL BE SEEN WITHIN 3-5 DAYS OF ADMISSION. 01/31/23-02/02/[address]
--- NOTE | 2023-01-28 15:35 | NUR ---
The patient's care was reviewed and supervised by ED Agency Nurse 7, RN, RN.
--- NOTE | 2023-01-28 16:49 | NUR ---
admitted the patinet from emergency room rn darnell hopson serbian speaking with admitting diagnosis of congestive heart problem . will continue to monitor
[2023-01-28] MEDS: FUROSEMIDE 40 MG/4 ML VIAL IVP SCH (17:32)
[2023-01-28] MEDS: HYDROcodone/APAP 5/325 MG 1 TAB TAB PO PRN ×2 (17:33→21:37)
--- NOTE | 2023-01-28 17:43 | NUR ---
patient complain of pain left foot . norco was administered. will continue to monitor
--- NOTE | 2023-01-28 19:30 | NUR ---
RECEIVED REPORT FROM DAY SHIFT NURSE DONOVAN FOR CONTINUITY OF CARE. PATIENT IS A&O X4; BENGALI SPEAKING. PATIENT IS ON 2L NC. BREATHING IS NORMAL WITH SYMMETRICAL RISE AND FALL OF CHEST. IV IS A 20G LAC; NO FLUIDS RUNNING AT THIS TIME. PATIENT IS SITTING IN HIGH-FOWLERS POSITION VISITING WITH GRANDDAUGHTER. BED IS IN LOWEST POSITION, WHEELS LOCKED, CALL LIGHT IN PLACE. WILL CONTINUE TO OBSERVE PATIENT.
--- NOTE | 2023-01-28 19:34 | NUR ---
will endorse to evidence specialist rn for continuity of care
[2023-01-28] MEDS: DULoxetine 30 MG CAPDR PO SCH (21:27)
[2023-01-28] MEDS: carvediloL 6.25 MG TAB PO SCH (21:27)
--- NOTE | 2023-01-28 21:40 | NUR ---
ADMINISTERED 2100 MEDICATIONS TO PATIENT. MEDICATION ADMINISTERED SUCCESSFULLY WITHOUT ANY ISSUES WITH SWALLOWING. PATIENT COMPLAINED OF 8/10 PAIN. CHECKED VITALS AND CHART; NORCO WAS APPROPRIATE TO ADMINISTER. MEDICATION ADMINISTERED SUCCESSFULLY.
[2023-01-29] VITALS: BP 151/76; PULSE 78; PULSE 81; RESP 18; TEMP 96.8; O2SAT 98
[2023-01-29] MEDS: HYDROcodone/APAP 5/325 MG 1 TAB TAB PO PRN ×3 (01:44→20:24)
--- NOTE | 2023-01-29 02:10 | NUR ---
PATIENT WAS GIVEN NORCO FOR FOOT PAIN BY CHARGE NURSE MAULIK. PATIENT IS NOW SLEEPING. MEDICATION WAS EFFECTIVE. WILL CONTINUE TO OBSERVE PATIENT.
[2023-01-29 04:00] VITALS: BP 154/78; PULSE 69; PULSE 70; RESP 18; TEMP 96.4; O2SAT 100
[2023-01-29 05:26] LABS: BASOPHILS # (AUTO) 0.1 K/uL (0.00-0.22); BASOPHILS % (AUTO) 0.7 % (0.0-2.0); EOSINOPHILS # (AUTO) 1.3 K/uL (0-0.4); EOSINOPHILS % (AUTO) 14.1 % (0.0-4.0); HEMATOCRIT 37.6 % (36-48); HEMOGLOBIN 12.7 g/dL (12.0-16.0); LYMPHOCYTES # (AUTO) 2.8 K/uL (2.5-16.5); LYMPHOCYTES % (AUTO) 30.2 % (20.5-51.1); MEAN CORPUSCULAR HEMOGLOBIN 28 pg (27-31); MEAN CORPUSCULAR HGB CONC 34 g/dL (33-37); MEAN CORPUSCULAR VOLUME 83.2 fL (80-94); MONOCYTES # (AUTO) 0.8 K/uL (0.8-1.0); MONOCYTES % (AUTO) 9.1 % (1.7-9.3); NEUTROPHILS # (AUTO) 4.2 K/uL (1.8-7.7); NEUTROPHILS % (AUTO) 45.9 % (42.2-75.2); PLATELET COUNT (AUTO) 387 K/uL (140-450); RED BLOOD CELL COUNT(AUTO) 4.52 MIL/uL (4.20-5.40); RED CELL DISTRIBUTION WIDTH 15.4 % (11.6-13.7); WHITE BLOOD COUNT (AUTO) 9.2 K/uL (4.8-10.8)
[2023-01-29 05:57] LABS: ANION GAP 15.2 (8-16); CARBON DIOXIDE 24.4 mmol/L (21-32); CHLORIDE 101 mmol/L (98-107); CREATININE 0.9 mg/dL (0.6-1.3); GLUCOSE 169 mg/dL (74-106); POTASSIUM 3.6 mmol/L (3.5-5.1); SODIUM SERUM 137 mmol/L (136-145); UREA NITROGEN, BLOOD 30 mg/dL (7-18)
[2023-01-29] MEDS ORDERED: DEXTROSE 50% 50 ML SYR IVP PRN (06:35)
[2023-01-29] MEDS: BLOOD GLUCOSE MONITORING 1 DEV DEV FS SCH ×4 (06:50→20:21)
[2023-01-29] MEDS: INSULIN LISPRO SLIDING SCALE 100 UNITS/ML VIAL SUBQ PRN ×2 (06:52→11:54)
--- NOTE | 2023-01-29 07:27 | NUR ---
ENDORSE TO DAY SHIFT NURSE ONI FOR CONTINUITY OF CARE. PATIENT IS STABLE.
--- NOTE | 2023-01-29 07:28 | NUR ---
RECEIVED REPORT FROM CLINICAL EDUCATION ASSISTANT NURSE, CLOTILDE, FOR CONTINUITY OF CARE. PT IN BED AT THIS TIME, RESPIRATIONS ARE EVEN AND UNLABORED, PT IS ON 2L 02 VIA NC. PT IS ALERT AND ORIENTED X4, ABLE TO VERBALIZE NEEDS, ABLE TO FOLLOW COMMANDS. PT IS CITIZEN OF [place] SPEAKING. ADMITTING DX IS CHF EXACERBATION. ABD IS NONTENDER, NONDISTENDED WITH BOWEL SOUNDS PRESENT. PT IS ON CARDIAC/CCHO DIET. TOLERATING WELL. PT IS CONTINENT OF BOWEL AND BLADDER, PT ON BED REST AT THIS TIME. PT HAS PURE WIK IN PLACE AT THIS TIME. PT HAS DM FOOT ULCER TO L FOOT, HAS ORDER FOR WOUND CONSULT. PT HAS IV TO LAC 20G,L SALINE LOCKED. CALL LIGHT WITHIN REACH. ALL SAFETY MEASURES IN PLACE.
[2023-01-29 08:00] VITALS: BP 159/78; PULSE 77; PULSE 81; RESP 18; TEMP 98.3; O2SAT 100; O2SAT 99
[2023-01-29] MEDS: DULoxetine 30 MG CAPDR PO SCH ×2 (08:49→20:19)
[2023-01-29] MEDS: ATORVASTATIN 20 MG TAB PO SCH (08:50)
[2023-01-29] MEDS: ASPIRIN 81 MG TAB.CHEW PO SCH (08:50)
[2023-01-29] MEDS: carvediloL 6.25 MG TAB PO SCH (08:51)
[2023-01-29] MEDS: CLOPIDOGREL 75 MG TAB PO SCH (08:52)
[2023-01-29] MEDS ORDERED: lisinopriL 20 MG TAB PO SCH (09:00)
[2023-01-29] MEDS: ENOXAPARIN 40 MG/0.4 ML SYR SUBQ SCH (09:00)
--- NOTE | 2023-01-29 09:00 | NUR ---
ADMINISTERED ALL SCHEDULED MEDICATIONS. EDUCATED PT ON MEDS ADMINISTERED. PT ALSO COMPLAINING OF PAIN. STATES PAIN IS 8/10. MEDICATED.
--- NOTE | 2023-01-29 09:21 | NUR ---
PT CALLED NURSE, ASKED NURSE TO UPDATE FAMILY ON PLAN OF CARE. UPDATED FAMILY. ANSWERED ALL QUESTIONS.
--- NOTE | 2023-01-29 09:35 | NUR ---
PT CALLED NURSE AGAIN, ASKING FOR NURSE TO UPDATE NEW FAMILY MEMBERS AT BED SIDE. UPDATED FAMILY. ALSO EDUCATED PT FAMILY ON PT DIET WHILE SHE IS HOSPITALIZED, PT FAMILY HAD BROUGHT PT PLENTY OF FLUIDS, SODA, AND SNACKS. PT UPSET THAT SHE IS NOT ALLOWED TO EAT THESES FOODS. REMINDED PT OF DIET. PT VERBALIZED UNDERSTANDING.
--- NOTE | 2023-01-29 09:50 | NUR ---
PT FAMILY CALLED, OTHER NEW FAMILY AT BEDSIDE ASKING FOR UPDATE ON PT. SPOKE WITH PT DAUGHTER AND ASKED HER TO HAVE A TALK WITH FAMILY AND THAT WE WOULD NEED A DESIGNATED PERSON TO GIVE UPDATES TO AND THAT PERSON MAY UPDATE FAMILY THEY WISH. PT DAUGHTER VERBALIZED UNDERSTANDING. ALSO NOTED THAT PT SON HAD BROUGHT PT A BOTTLE OF COCA COLA, REMINDED PT OF DIET. PT UPSET. FAMILY ASKING WHY SHE CANNOT HAVE SNACKS AND SODAS. EDUCATED PT FAMILY AGAIN ON DIET WHILE HOSPITALIZED.
--- NOTE | 2023-01-29 10:45 | NUR ---
DR TAYLOR AT BEDSIDE TO GIVE FAMILY UPDATE. ALSO EDUCATED PT FAMILY ON APPROPRIATE FOODS THAT PT MAY HAVE WHILE HOSPITALIZED. PT FAMILY VERBALIZED UNDERSTANDING.
[2023-01-29] MEDS: FUROSEMIDE 40 MG/4 ML VIAL IVP SCH ×2 (10:48→17:13)
--- NOTE | 2023-01-29 11:00 | NUR ---
PER DR TAYLOR, START TO WEAN PT OFF . WILL FOLLOW THROUGH.
--- NOTE | 2023-01-29 11:02 | NUR ---
WOUND CARE NOTE: WOUND ASSESSMENT DONE ON THIS 77 Y/O FEMALE ADMITTED WITH SOB AND WITH HISTORY OF ACUTE ON CHRONIC COMBINED HEART FAILURE, DIABETES, HYPERTENSION AND LEFT FOOT ULCERS, PER ED PHYSICIAN NOTE PODIATRY PLANS TO PURSUE OUTPATIENT WORK-UP FOR PAD. DR. TAYLOR VISIT PT. AT BED SIDE POC DISCUSSED WITH IN HOUSE PODIATRY CONSULT FOR POSSIBLE DEBRIDEMENT TO LEFT FOOT /HEEL INFECTED WOUNDS. WILL START DAILY DRESSING WITH BETADINE. POC DISCUSSED WITH PT. AND 4 OTHER FAMILY MEMBERS. AND PRIMARY NURSE ONI. ALL ABOVE INFORMATION TRANSLATE IN MAORI BY CHARGE NURSE EDMOND. ALL QUESTION ANSWERED. PT. WITH LOW SU SCALE AT MODERATE TO HIGH RISK, CONTINUE TO FOLLOW PRESSURE INJURY PREVENTION INTERVENTIONS. -PAD LEFT LATERAL FOOT SITE #1 2X1.8CM, SITE #2 2.5X2CM BOTH WOUNDS INFECTED TISSUE 100% BROWN AND YELLOW, MOIST, MILD ODOR, FERNANDO-WOUND SKIN INTACT. -PAD LEFT HEEL SITE #1 0.8X0.8CM, SITE #2 2X3CM BOTH WOUNDS INFECTED TISSUE 100% BROWN AND YELLOW, MOIST, MILD ODOR, FERNANDO-WOUND SKIN SCALY INTACT. RECOMMENDATIONS -PENDING PODIATRY CONSULT -LEFT FOOT AND HEEL PAD ULCERS APPLY SOAKED 4X4 GAUZES WITH BETADINE SOLUTION, COVER WITH DRY DRESSING, WRAP WITH KERLIX ROLL AND SECURED WITH TAPE QD AND PRN IF SOILING -POSITIONING: TURN AND REPOSITION PATIENT Q 2H OR SOONER USE PILLOWS TO KEEP BONY PROMINENCES FROM DIRECT CONTACT WITH SURFACES USE REPOSITIONING WEDGES TO PROVIDE 30-DEGREE ANGLE FOR SIDE LYING POSITIONS OFFLOADING OR FOAM DRESSING TO ALL TUBING TO PREVENT MEDICAL DEVICES RELATED PRESSURE INJURY -RE-EVALUATING AND MANAGING INCONTINENCE MONITOR SKIN CONDITION DURING POSITION CHANGE DO NOT MASSAGE REDNESS, BONY PROMINENCES FREQUENT FERNANDO-CARE AND PROVIDE BARRIER CREAMS PRN IF SOILING MOISTURE CONTROL BY OFFER BED CANNON,ABSORBENT PAD TO WICK AND HOLD MOISTURE KEEP SKIN DRY AND PROTECT FROM FRICTION -MANAGE FRICTION/SHEAR/MOBILITY KEEP HOB AT THE LOWEST LEVEL OF ELEVATION NO MORE THAN 30 DEGREE UNLESS OTHERWISE CONTRAINDICATED USE LIFT SHEET OR TRANSFER DEVICE TO MOVE PATIENT AND PREVENT LATERAL SHEER. PROTECT HEELS, ELBOWS BONY PROMINENCES WITH SKIN BERRIES OR FOAM DRESSING IF EXPOSED TO FRICTION OFFLOAD BILATERAL HEELS BY PLACING PILLOWS UNDER CALVES AT ALL TIMES, UNLESS OTHERWISE CONTRAINDICATED -PRESSURE REDISTRIBUTION SURFACE THERAPY LAURO ISOFLEX MATTRESS -NUTRITION: PLEASE FOLLOW RD RECOMMENDATIONS AND OFFER NUTRITION SUPPLEMENTS IF ORDERED.
--- NOTE | 2023-01-29 11:16 | NUR ---
LOWERED PT 02, PT TOLERATING WELL. 02 SAT AT 97%.
[2023-01-29 12:00] VITALS: BP 111/61; PULSE 64; PULSE 66; RESP 18; TEMP 97.3; O2SAT 99
--- NOTE | 2023-01-29 14:25 | NUR ---
DID ROUNDS ON PT. PT IN BED SLEEPING AT THIS TIME. RESPIRATIONS ARE EVEN AND UNLABORED. NO SIGNS OF DISTRESS NOTED. NO COMPLAINTS OF PAIN OR DISCOMFORT.
--- NOTE | 2023-01-29 15:40 | NUR ---
DC PLANN[age] YRS OLD FEMALE PATIENT WAS ADMITTED FROM HOME WITH A DX OF CHF EXACERBATION. PATIENT HAS A HX OF ACUTE ON CHRONIC COMBINED HEART FAILURE. CXR SHOWED MILD PULMONARY EDEMA, FOOT XRAY SHOWED REMONSTRATION OF LATERAL LEFT FOOL SOFT TISSUE ULCERATIONS WITHOUT RADIOGRAPHIC EVIDENCE OF OSTEOMYELITIS. RAPID COVID TEST NEGATIVE. INFLUENZA A&B NEGATIVE. ON O2 2L/NC SATING 98%. ADMINISTERED IV LASIX AND CONTINUED HOME MEDS. CONSULTED WITH PODIATRY DR HILLS, CARDIO AND WOUND CONSULT. DC PLAN TO GO HOME WHEN STABLE. CM TO FOLLOW
--- NOTE | 2023-01-29 17:16 | NUR ---
WEANED PT COMPLETELY OFF 02 VIA NC. PT 02 SAT AT 98% ON ROOM AIR. NO COMPLAINTS OF SOB. NO SIGNS OF DISTRESS NOTED.
[2023-01-29 17:41] VITALS: BP 113/61; PULSE 72; RESP 18; TEMP 97.4; O2SAT 99
--- NOTE | 2023-01-29 19:17 | NUR ---
ENDORSED PT TO GRAIN DRIER NURSEMARGARITA, FOR CONTINUITY OF CARE. PT IS STABLE.
--- NOTE | 2023-01-29 19:18 | NUR ---
RECEIVED REPORT FROM DAY SHIFT GENO BUNN FOR CONTINUITY OF CARE. PT AWAKE WITH VISITOR AT BEDSIDE. PT A/A/0. RESPIRATIONS EVEN AND UNLABORED ON RA. NO COMPLAINTS OF PAIN AT THIS TIME. NO SOB. LEFT FOOT COVERED WITH BANDAGE, DRY AND INTACT. POC DISCUSSED. REPORT GIVEN TO LAUREN RAYMOND. CALL LIGHT WITHIN REACH. SAFETY PRECAUTIONS IN PLACE.
[2023-01-29 20:00] VITALS: BP 130/61; PULSE 73; PULSE 75; RESP 18; TEMP 97.3; O2SAT 96; O2SAT 98
--- NOTE | 2023-01-29 20:00 | NUR ---
Patient's Plan of Care was discussed and reviewed with OIL PROCESS STILLMAN:MARGARITA KOHLER
[2023-01-29] MEDS: carvediloL 12.5 MG TAB PO SCH (20:19)
--- NOTE | 2023-01-29 20:24 | NUR ---
ADMINISTERED DUE MEDS. PT COMPLAINED OF LEFT FOOT PAIN 02/10. PRN PAIN MED ADMINISTERED PER MD ORDER. V/S WITHIN NORMAL LIMITS.
[2023-01-30] VITALS: BP 112/63; PULSE 65; PULSE 66; RESP 18; TEMP 97.6; O2SAT 97
[2023-01-30 03:47] VITALS: PULSE 67
[2023-01-30 04:00] VITALS: BP 105/58; PULSE 74; RESP 18; TEMP 97.5; O2SAT 95
[2023-01-30 05:25] LABS: BASOPHILS # (AUTO) 0.1 K/uL (0.00-0.22); BASOPHILS % (AUTO) 0.8 % (0.0-2.0); EOSINOPHILS % (AUTO) 11.3 % (0.0-4.0); HEMATOCRIT 38.6 % (36-48); HEMOGLOBIN 13.3 g/dL (12.0-16.0); LYMPHOCYTES % (AUTO) 23.9 % (20.5-51.1); MEAN CORPUSCULAR HEMOGLOBIN 28 pg (27-31); MEAN CORPUSCULAR HGB CONC 34 g/dL (33-37); MEAN CORPUSCULAR VOLUME 82.6 fL (80-94); MONOCYTES # (AUTO) 0.7 K/uL (0.8-1.0); MONOCYTES % (AUTO) 8.7 % (1.7-9.3); NEUTROPHILS # (AUTO) 4.7 K/uL (1.8-7.7); NEUTROPHILS % (AUTO) 55.3 % (42.2-75.2); PLATELET COUNT (AUTO) 392 K/uL (140-450); RED BLOOD CELL COUNT(AUTO) 4.67 MIL/uL (4.20-5.40); RED CELL DISTRIBUTION WIDTH 14.7 % (11.6-13.7); WHITE BLOOD COUNT (AUTO) 8.6 K/uL (4.8-10.8)
[2023-01-30 05:40] LABS: ANION GAP 14.7 (8-16); CARBON DIOXIDE 27.7 mmol/L (21-32); CHLORIDE 96 mmol/L (98-107); CREATININE 0.9 mg/dL (0.6-1.3); GLUCOSE 134 mg/dL (74-106); POTASSIUM 3.4 mmol/L (3.5-5.1); SODIUM SERUM 135 mmol/L (136-145); UREA NITROGEN, BLOOD 38 mg/dL (7-18)
[2023-01-30] MEDS: BLOOD GLUCOSE MONITORING 1 DEV DEV FS SCH ×4 (06:39→20:30)
--- NOTE | 2023-01-30 06:39 | NUR ---
NO SLIDING SCALE INSULIN FOR [id number].
--- NOTE | 2023-01-30 07:05 | NUR ---
GAVE BEDSIDE REPORT TO LAUREN REN FOR CONTINUITY OF CARE. PT IS STABLE.
--- NOTE | 2023-01-30 07:06 | NUR ---
RECEIVED REPORT FROM CAB DRIVER NURSE FOR CONTINUITY OF CARE. PT IS AWAKE, NO SIGN OF DISTRESS. CALL LIGHT WITHIN REACH.
[2023-01-30 08:00] VITALS: BP 117/62; PULSE 70; PULSE 91; RESP 18; TEMP 98.3; O2SAT 99
[2023-01-30] MEDS: ATORVASTATIN 20 MG TAB PO SCH (08:19)
[2023-01-30] MEDS: DULoxetine 30 MG CAPDR PO SCH ×2 (08:20→20:30)
[2023-01-30] MEDS: CLOPIDOGREL 75 MG TAB PO SCH (08:20)
[2023-01-30] MEDS: carvediloL 12.5 MG TAB PO SCH ×2 (08:21→20:31)
[2023-01-30] MEDS: lisinopriL 20 MG TAB PO SCH (08:22)
[2023-01-30] MEDS: FUROSEMIDE 40 MG/4 ML VIAL IVP SCH (08:22)
[2023-01-30] MEDS: ENOXAPARIN 40 MG/0.4 ML SYR SUBQ SCH (08:30)
[2023-01-30] MEDS ORDERED: ASPIRIN 81 MG TAB.CHEW PO SCH (08:32)
[2023-01-30] MEDS ORDERED: ASPIRIN 81 MG TAB.CHEW PO PRN (08:40)
--- NOTE | 2023-01-30 08:40 | NUR ---
AROUND 0830 I CALLED PHARMACY BECAUSE ASPIRIN DOESN'T SCAN, I RETURNED THE MED AND THEY ISSUED A ONE TIME ASPIRIN FOR ME TO PULL. GAVE THE ASPIRIN AT AROUND 0835 HOWEVER, EMAR DIDN'T CAPTURE IT. PHARMACIST CHRISTOPHER IS INFORMED.
[2023-01-30] MEDS: ASPIRIN 81 MG TAB.CHEW PO SCH (09:00)
[2023-01-30] MEDS ORDERED: POTASSIUM CHLORIDE 10 MEQ TABER PO PRN (10:15)
[2023-01-30] MEDS: NITROGLYCERIN 0.1 MG/HR PATCH TD SCH (11:02)
[2023-01-30] MEDS: INSULIN LISPRO SLIDING SCALE 100 UNITS/ML VIAL SUBQ PRN ×2 (12:15→20:34)
[2023-01-30] MEDS: GAUZE TP SCH (13:00)
--- NOTE | 2023-01-30 15:21 | NUR ---
01/30/23 RD INITIAL ASSESSMENT COMPLETED PLEASE REFER TO NUTRITION ASSESSMENT UNDER CARE ACTIVITY FOR ESTIMATED NUTRITIONAL NEEDS. 1. CONTINUE CARDIAC DIET TOLERATED AND ADD CCHO 60 GRAM DIET WELL. 2. RD RECOMMENDS PROSOURCE BID FOR WOUNDS, THIS WILL PROVIDE 120 CALORIES AND 30 GRAMS OF PROTEIN. 3. RD TO FOLLOW-UP 3-5 DAYS, MODERATE RISK KRUNAL DASH RD
[2023-01-30 16:00] VITALS: BP 103/77; PULSE 72; RESP 18; TEMP 98.3; O2SAT 97
[2023-01-30] MEDS: HYDROcodone/APAP 5/325 MG 1 TAB TAB PO PRN ×2 (17:16→22:33)
--- NOTE | 2023-01-30 19:05 | NUR ---
RECEIVED PT IN BED,ASLEEP, EASILY AROUSABLE BY VERBAL STIMULI. DENIES PAIN AT THIS TIME. NO ACUTE RESPIRATORY DISTRESS NOTED. SKIN WARM AND DRY TO TOUCH. SAFETY PRECAUTIONS IN PLACE, CALL LIGHT IN REACH, ENCOURAGED TO CALL IF ASSISTANCE IS NEEDED, PT VERBALLY ACKNOWLEDGED.
--- NOTE | 2023-01-30 19:11 | NUR ---
GAVE BEDSIDE REPORT TO THE CORPORATE SECRETARY NURSE FOR CONTINUITY OF CARE. PT IS ASLEEP, NO SIGN OF DISTRESS. AWAITING FOR SURGERY CONSULT. CALL LIGHT WITHIN REACH. Addendum: 01/30/23 at 1915 by MIKAL GUSMAN RN WRONG PATIENT.
--- NOTE | 2023-01-30 19:15 | NUR ---
GAVE BEDSIDE REPORT TO THE PLANT CHIEF NURSE FOR CONTINUITY OF CARE. PT IS ASLEEP, NO SIGN OF DISTRESS. CALL LIGHT WITHIN REACH.
[2023-01-30 20:00] VITALS: BP 103/53; PULSE 70; PULSE 71; RESP 16; RESP 18; TEMP 98.1; O2SAT 95
[2023-01-30] MEDS ORDERED: MORPHINE SULFATE 2 MG/ML SYR IVP PRN (22:50)
[2023-01-31] VITALS (7 sets, daily range): BP systolic 110–115; BP diastolic 44–63; PULSE 69–75; RESP 18–19; TEMP 97.4–98.3; O2SAT 96–99
[2023-01-31 05:34] LABS: ANION GAP 12.8 (8-16); CARBON DIOXIDE 26.7 mmol/L (21-32); CHLORIDE 98 mmol/L (98-107); CREATININE 1.2 mg/dL (0.6-1.3); GLUCOSE 177 mg/dL (74-106); POTASSIUM 4.5 mmol/L (3.5-5.1); SODIUM SERUM 133 mmol/L (136-145); UREA NITROGEN, BLOOD 49 mg/dL (7-18)
[2023-01-31 05:36] LABS: BASOPHILS # (AUTO) 0.1 K/uL (0.00-0.22); BASOPHILS % (AUTO) 0.5 % (0.0-2.0); EOSINOPHILS # (AUTO) 0.9 K/uL (0-0.4); EOSINOPHILS % (AUTO) 8.2 % (0.0-4.0); HEMATOCRIT 36.6 % (36-48); HEMOGLOBIN 12.2 g/dL (12.0-16.0); LYMPHOCYTES # (AUTO) 2.5 K/uL (2.5-16.5); LYMPHOCYTES % (AUTO) 22.8 % (20.5-51.1); MEAN CORPUSCULAR HEMOGLOBIN 28 pg (27-31); MEAN CORPUSCULAR HGB CONC 33 g/dL (33-37); MEAN CORPUSCULAR VOLUME 84.2 fL (80-94); MONOCYTES # (AUTO) 0.9 K/uL (0.8-1.0); MONOCYTES % (AUTO) 8.1 % (1.7-9.3); NEUTROPHILS # (AUTO) 6.7 K/uL (1.8-7.7); NEUTROPHILS % (AUTO) 60.4 % (42.2-75.2); PLATELET COUNT (AUTO) 376 K/uL (140-450); RED BLOOD CELL COUNT(AUTO) 4.34 MIL/uL (4.20-5.40); RED CELL DISTRIBUTION WIDTH 14.8 % (11.6-13.7)
[2023-01-31] MEDS: INSULIN LISPRO SLIDING SCALE 100 UNITS/ML VIAL SUBQ PRN ×4 (06:31→20:38)
[2023-01-31] MEDS: BLOOD GLUCOSE MONITORING 1 DEV DEV FS SCH ×4 (06:32→20:30)
--- NOTE | 2023-01-31 07:14 | NUR ---
receive the patient from the night5 shift sincere pires in rm 124B aox4 greenlandic speaking with admitting diagnosis of congestive heart failure exacerbation .will continue to monitor
[2023-01-31] MEDS ORDERED: FUROSEMIDE 40 MG/4 ML VIAL IVP SCH (09:00)
[2023-01-31] MEDS: DULoxetine 30 MG CAPDR PO SCH ×2 (10:03→20:36)
[2023-01-31] MEDS: ASPIRIN 81 MG TAB.CHEW PO SCH (10:04)
[2023-01-31] MEDS: carvediloL 12.5 MG TAB PO SCH ×2 (10:04→20:37)
[2023-01-31] MEDS: lisinopriL 20 MG TAB PO SCH (10:04)
[2023-01-31] MEDS: CLOPIDOGREL 75 MG TAB PO SCH (10:04)
[2023-01-31] MEDS: ATORVASTATIN 20 MG TAB PO SCH (10:05)
[2023-01-31] MEDS: ENOXAPARIN 40 MG/0.4 ML SYR SUBQ SCH (10:07)
[2023-01-31] MEDS: NITROGLYCERIN 0.1 MG/HR PATCH TD SCH (10:19)
[2023-01-31] MEDS: GAUZE TP SCH (12:33)
--- NOTE | 2023-01-31 16:59 | NUR ---
Distribution Operations Supervisor PLASTIC TOOL MAKER spoke to pts. mellyther Krista Raineyno who was helpful in completing the assessment, stated pt. has painful foot ulcers, bedroom is upstairs. Please see discharge plannin assessment. Addendum: 01/31/23 at 1703 by Gris Rojas Distribution Operations Supervisor As per doctors proyao. notes. pt may need home oxygen and is a self-pay
--- NOTE | 2023-01-31 18:54 | NUR ---
will endorse to slot shift manager rn for continuity of care
--- NOTE | 2023-01-31 19:40 | NUR ---
RECEIVED BEDSIDE REPORT FROM DAY SHIFT NURSE. PT IS AWAKE AT THIS TIME, FAMILY AT BEDSIDE. YAKUT SPEAKING BUT DOES UNDERSTAND SOME SPANISH. ALERT AND ORIENTED X4, CURRENTLY STABLE ON ROOM AIR. PATIENT STATES NO PAIN AT THIS TIME. IV SITE LOCATED TO LEFT AC 20 GAUGE, INTACT AND PATENT. PATIENT HAS DIABETIC ULCER LOCATED AT LEFT FOOT AND HEEL, CURRENTLY EXPLOSIVE MAN. CALL LIGHT PLACED WITHIN REACH, SAFETY MEASURES IN PLACE.
--- NOTE | 2023-01-31 20:00 | NUR ---
Patient's Plan of Care was discussed and reviewed with GENO: CLOTILDE
--- NOTE | 2023-01-31 21:00 | NUR ---
ALL SCHEDULED MEDICATIONS ADMINISTERED, PATIENT BLOOD SUGAR LEVEL OF 197, 2 UNITS OF HUMALOG INSULIN WAS ADMINISTERED. PT TOLERATED WELL, WILL CONTINUE TO MONITOR.
[2023-01-31] MEDS: HYDROcodone/APAP 5/325 MG 1 TAB TAB PO PRN (21:23)
--- NOTE | 2023-01-31 21:23 | NUR ---
PATIENT STATES A PAIN LEVEL OF 5/10 IN LEFT FOOT, DOES NOT RADIATE TO OTHER LOCATIONS. FOOT PLACED ON ELEVATION AND MEDICATED PATIENT W/ NORCO 5/325 1 TABLET PO PRN, PT TOLERATED WELL, WILL REASSESS PAIN LEVEL IN ONE HOUR.
--- NOTE | 2023-01-31 22:23 | NUR ---
UPON PAIN REASSESSMENT, PATIENT SLEEPING COMFORTABLY, NO S/SX OF DISTRESS NOTED, FLACC SCORE 0.
--- NOTE | 2023-02-01 00:51 | NUR ---
APPLIED DRY DRESSING TO LEFT FOOT ULCER, WILL CHANGE NEEDED.
--- NOTE | 2023-02-01 03:40 | NUR ---
VITAL SIGNS WNL. TOLERATED WELL. DENIES PAIN AT THIS TIME. RESPIRATIONS EVEN AND UNLABORED WITH NO APPARENT S/SX OF ACUTE DISTRESS. ALL SAFETY MEASURES IN PLACE. BED IN LOW/LOCKED POSITION. CALL LIGHT WITHIN REACH. WILL CONTINUE TO MONITOR.
[2023-02-01 04:00] VITALS: BP 105/49; PULSE 67; RESP 16; TEMP 97.8; O2SAT 98
[2023-02-01 05:27] LABS: BASOPHILS # (AUTO) 0.1 K/uL (0.00-0.22); BASOPHILS % (AUTO) 0.7 % (0.0-2.0); EOSINOPHILS % (AUTO) 11.5 % (0.0-4.0); HEMATOCRIT 36.6 % (36-48); HEMOGLOBIN 12.1 g/dL (12.0-16.0); LYMPHOCYTES % (AUTO) 33.8 % (20.5-51.1); MEAN CORPUSCULAR HEMOGLOBIN 28 pg (27-31); MEAN CORPUSCULAR HGB CONC 33 g/dL (33-37); MEAN CORPUSCULAR VOLUME 84.4 fL (80-94); MONOCYTES # (AUTO) 0.8 K/uL (0.8-1.0); MONOCYTES % (AUTO) 9.2 % (1.7-9.3); NEUTROPHILS % (AUTO) 44.8 % (42.2-75.2); PLATELET COUNT (AUTO) 363 K/uL (140-450); RED BLOOD CELL COUNT(AUTO) 4.34 MIL/uL (4.20-5.40); RED CELL DISTRIBUTION WIDTH 15.1 % (11.6-13.7); WHITE BLOOD COUNT (AUTO) 8.8 K/uL (4.8-10.8)
[2023-02-01 05:35] LABS: ANION GAP 8.6 (8-16); CARBON DIOXIDE 28.6 mmol/L (21-32); CHLORIDE 99 mmol/L (98-107); CREATININE 0.9 mg/dL (0.6-1.3); GLUCOSE 170 mg/dL (74-106); POTASSIUM 4.2 mmol/L (3.5-5.1); SODIUM SERUM 132 mmol/L (136-145); UREA NITROGEN, BLOOD 40 mg/dL (7-18)
[2023-02-01] MEDS: BLOOD GLUCOSE MONITORING 1 DEV DEV FS SCH ×2 (06:32→11:54)
[2023-02-01] MEDS: INSULIN LISPRO SLIDING SCALE 100 UNITS/ML VIAL SUBQ PRN ×2 (06:34→11:56)
--- NOTE | 2023-02-01 06:37 | NUR ---
PATIENT BLOOD GLUCOSE OF 165, TWO UNITS OF HUMALOG INSULIN ADMINISTERED BY BOILER INSTALLER: WINSTON. ALL PATIENT NEEDS MET, NO DISTRESS AT THIS TIME. WILL ENDORSE TO DAY SHIFT NURSE IN STABLE CONDITION.
--- NOTE | 2023-02-01 07:05 | NUR ---
RECEIVED REPORT FROM APRON WORKER NURSE FOR CONTINUITY OF CARE. PT IS STABLE AT THIS TIME.
[2023-02-01 08:00] VITALS: BP 113/60; PULSE 67; RESP 17; TEMP 98.4; O2SAT 98
[2023-02-01 08:11] VITALS: O2SAT 99
[2023-02-01] MEDS ORDERED: FUROSEMIDE 40 MG TAB PO SCH (09:00)
[2023-02-01] MEDS: lisinopriL 20 MG TAB PO SCH (09:00)
[2023-02-01] MEDS: ASPIRIN 81 MG TAB.CHEW PO SCH (09:30)
[2023-02-01] MEDS: carvediloL 12.5 MG TAB PO SCH (09:31)
[2023-02-01] MEDS: CLOPIDOGREL 75 MG TAB PO SCH (09:31)
[2023-02-01] MEDS: DULoxetine 30 MG CAPDR PO SCH (09:31)
[2023-02-01] MEDS: ATORVASTATIN 20 MG TAB PO SCH (09:31)
[2023-02-01] MEDS: ENOXAPARIN 40 MG/0.4 ML SYR SUBQ SCH (09:32)
[2023-02-01] MEDS: NITROGLYCERIN 0.1 MG/HR PATCH TD SCH (09:33)
[2023-02-01] MEDS: HYDROcodone/APAP 5/325 MG 1 TAB TAB PO PRN (12:01)
[2023-02-01] MEDS ORDERED: METF-346 PO (12:03)
[2023-02-01] MEDS: GAUZE TP SCH (13:20)
[2023-02-01 14:23] VITALS: BP 113/60; PULSE 67; RESP 17; TEMP 98.4
[2023-02-01] MEDS ORDERED: CLOP75TA55 PO (14:51)
[2023-02-01] MEDS ORDERED: CEPH500T PO (14:52)
[2023-02-01] MEDS ORDERED: CEPH-588 PO ×2 (14:54→15:18)
[2023-02-01] MEDS ORDERED: cephALEXin 500 MG CAP PO SCH (18:00)
[2023-02-02] MEDS ORDERED: CLOPIDOGREL 75 MG TAB PO SCH (09:00)
== END 2023-02-01 16:16 | disposition home or self-care (01) | DRG 291 ==
LOC: MED 09:33 → MTU 13:18
PROVIDERS: ADMIT Internal Medicine; ATTEND Internal Medicine
DX: I11.0 Hypertensive heart disease with heart failure (principal); I50.23 Acute on chronic systolic (congestive) heart failure; J96.01 Acute respiratory failure with hypoxia; L97.929 Non-pressure chronic ulcer of unspecified part of left lower leg with unspecified severity; I42.9 Cardiomyopathy, unspecified; E11.51 Type 2 diabetes mellitus with diabetic peripheral angiopathy without gangrene; E11.621 Type 2 diabetes mellitus with foot ulcer; Z20.822 Contact with and (suspected) exposure to COVID-19; I25.10 Atherosclerotic heart disease of native coronary artery without angina pectoris; S91.302A Unspecified open wound, left foot, initial encounter; E78.5 Hyperlipidemia, unspecified; X58.XXXA Exposure to other specified factors, initial encounter; Y93.89 Activity, other specified; Y92.89 Other specified places as the place of occurrence of the external cause; Y99.8 Other external cause status
CPT/HCPCS: 36415; 71045; 73630; 80048; 80053; 81001; 82948; 83605; 83735; 83880; 84100; 84484; 85025; 85651; 86140; 87040; 93005; 96374; 96375; 99285; J1650; J1940; J2270

== ENCOUNTER 2023-02-25 05:15 | Inpatient (IN) | payer MEDICAID ==
[~2023-02-25] VITALS: Ht 157.5 cm; Wt 52.2 kg
[~2023-02-25 05:15] MED LIST changes: -ALPH600C2 PO; -AMOX-999 PO; +CEPH-588 PO; -CLOP75TA55 PO; +METF-346 PO; -[UNRECOGNIZED DRUG - CODE] PO
[2023-02-25] MEDS ORDERED: ONDANSETRON 4 MG/2 ML VIAL IVP ONE (05:30)
[2023-02-25] MEDS ORDERED: MORPHINE SULFATE 2 MG/ML SYR IVP ONE ×2 (05:30→06:50)
[2023-02-25 05:31] VITALS: BP 131/55; PULSE 71; RESP 17; TEMP 97.8; O2SAT 97
[2023-02-25 05:43] LABS: BASOPHILS # (AUTO) 0.1 K/uL (0.00-0.22); BASOPHILS % (AUTO) 0.6 % (0.0-2.0); EOSINOPHILS # (AUTO) 1.2 K/uL (0-0.4); HEMATOCRIT 33.3 % (36-48); HEMOGLOBIN 11.1 g/dL (12.0-16.0); LYMPHOCYTES # (AUTO) 2.4 K/uL (2.5-16.5); LYMPHOCYTES % (AUTO) 20.3 % (20.5-51.1); MEAN CORPUSCULAR HEMOGLOBIN 28 pg (27-31); MEAN CORPUSCULAR HGB CONC 33 g/dL (33-37); MEAN CORPUSCULAR VOLUME 82.5 fL (80-94); MONOCYTES # (AUTO) 1.4 K/uL (0.8-1.0); MONOCYTES % (AUTO) 12.1 % (1.7-9.3); NEUTROPHILS # (AUTO) 6.6 K/uL (1.8-7.7); PLATELET COUNT (AUTO) 393 K/uL (140-450); RED BLOOD CELL COUNT(AUTO) 4.03 MIL/uL (4.20-5.40); RED CELL DISTRIBUTION WIDTH 13.6 % (11.6-13.7); WHITE BLOOD COUNT (AUTO) 11.6 K/uL (4.8-10.8)
[2023-02-25] MEDS ORDERED: NACL 0.9% 1,000 ML IV ONE (05:50)
[2023-02-25] MEDS ORDERED: NACL 0.9% 500 ML IV ONE (06:00)
[2023-02-25 06:04] LABS: ALANINE AMINOTRANSFERASE 17 U/L (12-78); ALBUMIN 2.9 g/dL (3.4-5.0); ALKALINE PHOSPHATASE 148 U/L (50-136); ANION GAP 11.5 (8-16); ASPARTATE AMINOTRANSFERASE 17 U/L (15-37); CALCIUM 8.8 mg/dL (8.5-10.1); CARBON DIOXIDE 27.7 mmol/L (21-32); CHLORIDE 98 mmol/L (98-107); CREATININE 1.2 mg/dL (0.6-1.3); GLUCOSE 232 mg/dL (74-106); POTASSIUM 4.2 mmol/L (3.5-5.1); SODIUM SERUM 133 mmol/L (136-145); TOTAL BILIRUBIN 0.1 mg/dL (0.0-1.0); TOTAL PROTEIN, SERUM 7.6 g/dL (6.4-8.2); UREA NITROGEN, BLOOD 59 mg/dL (7-18)
[2023-02-25 06:13] LABS: INR 0.99 (0.8-1.2); PARTIAL THROMBOPLASTIN TIME 30.3 secs (22-35.6); PROTHROMBIN TIME 10.4 secs (10.8-13.4)
[2023-02-25 06:27] LABS: LACTIC ACID 2.5 mmol/L (0.4-2.0)
[2023-02-25 06:39] LABS: ACETONE, SERUM NEGATIVE (NEGATIVE)
[2023-02-25] MEDS ORDERED: AMPICILLIN/SULBACTAM 3 GM in NACL 0.9% 100 ML IV ONE (06:50)
[2023-02-25] MEDS ORDERED: AMPICILLIN/SULBACTAM 3 GM VIAL ONE (06:58)
[2023-02-25 07:14] VITALS: O2SAT 97
[2023-02-25] MEDS ORDERED: GABA300S3 PO (08:10)
[2023-02-25 10:00] VITALS: PULSE 73; RESP 18; O2SAT 95; O2SAT 96
[2023-02-25 12:00] VITALS: BP 125/41; PULSE 60; PULSE 64; RESP 18; TEMP 98.2; O2SAT 96
[2023-02-25] MEDS ORDERED: DOCUSATE SODIUM 100 MG GELCAP PO PRN (13:15)
[2023-02-25] MEDS ORDERED: guaiFENesin DM 200/20 MG-10 ML 10 ML UDC PO PRN (13:15)
[2023-02-25] MEDS ORDERED: ACETAMINOPHEN 325 MG TAB PO PRN (13:15)
[2023-02-25] MEDS ORDERED: POTASSIUM CHLORIDE 10 MEQ TABER PO PRN (13:15)
[2023-02-25] MEDS ORDERED: ONDANSETRON 4 MG/2 ML VIAL IM/IVP PRN (13:15)
[2023-02-25] MEDS: MORPHINE SULFATE 4 MG/ML SYR IVP PRN ×3 (13:40→21:46)
[2023-02-25 13:59] LABS: CHOL/HDL RATIO 3.2 (1-4.5); FREE T4 (FREE THYROXINE) 0.82 ng/dL (0.76-1.46); MAGNESIUM 1.5 mg/dL (1.8-2.4); PHOSPHORUS 3.7 mg/dL (2.5-4.9); THYROID STIMULATING HORMONE 3.62 uIU/mL (0.34-3.74)
[2023-02-25] MEDS: NACL 0.9% 1,000 ML IV SCH (15:00)
[2023-02-25 16:00] VITALS: BP 128/45; PULSE 63; PULSE 71; PULSE 73; RESP 18; TEMP 98.2; O2SAT 97
[2023-02-25] MEDS: HYDROcodone/APAP 7.5/325 MG 1 TAB PO PRN (16:37)
[2023-02-25] MEDS ORDERED: DEXTROSE 50% 50 ML SYR IVP PRN (17:35)
[2023-02-25] MEDS: metFORMIN 500 MG TAB PO SCH (17:42)
[2023-02-25] MEDS: BLOOD GLUCOSE MONITORING 1 DEV DEV FS SCH (17:52)
[2023-02-25] MEDS: INSULIN LISPRO SLIDING SCALE 100 UNITS/ML VIAL SUBQ PRN ×2 (17:59→21:37)
[2023-02-25] MEDS: PIPERACILLIN/TAZOBACTAM 2.25 GM in DEXTROSE 5% 50 ML IV SCH ×2 (18:15→23:25)
[2023-02-25 20:00] VITALS: BP 141/46; PULSE 71; RESP 18; TEMP 98.5; O2SAT 96
[2023-02-25] MEDS ORDERED: carvediloL 6.25 MG TAB PO SCH (21:00)
[2023-02-25] MEDS: ZOLPIDEM 5 MG TAB PO PRN (21:47)
[2023-02-26] VITALS (8 sets, daily range): BP systolic 101–156; BP diastolic 45–70; PULSE 61–72; RESP 18–20; TEMP 97–98.4; O2SAT 96–99
[2023-02-26] MEDS: MORPHINE SULFATE 4 MG/ML SYR IVP PRN ×3 (02:52→10:03)
[2023-02-26] MEDS: GABAPENTIN 300 MG CAP PO PRN ×3 (04:42→20:37)
[2023-02-26] MEDS: NACL 0.9% 1,000 ML IV SCH ×2 (04:43→22:48)
[2023-02-26] MEDS: BLOOD GLUCOSE MONITORING 1 DEV DEV FS SCH ×4 (05:59→20:41)
[2023-02-26] MEDS: PIPERACILLIN/TAZOBACTAM 2.25 GM in DEXTROSE 5% 50 ML IV SCH ×4 (05:59→23:30)
[2023-02-26] MEDS: metFORMIN 500 MG TAB PO SCH ×2 (08:35→16:07)
[2023-02-26] MEDS: PANTOPRAZOLE 40 MG TABEC PO SCH (08:35)
[2023-02-26] MEDS: FUROSEMIDE 40 MG TAB PO SCH (08:36)
[2023-02-26] MEDS: ATORVASTATIN 20 MG TAB PO SCH (08:36)
[2023-02-26] MEDS: carvediloL 12.5 MG TAB PO SCH ×2 (08:37→20:38)
[2023-02-26] MEDS: lisinopriL 20 MG TAB PO SCH (08:37)
[2023-02-26] MEDS: ECOTRIN 81 MG TABEC PO SCH (08:38)
[2023-02-26] MEDS ORDERED: ASPIRIN 81 MG TAB.CHEW PO SCH (09:00)
[2023-02-26] MEDS ORDERED: ATORVASTATIN 20 MG TAB PO SCH (09:00)
[2023-02-26] MEDS ORDERED: FUROSEMIDE 40 MG TAB PO SCH (09:00)
[2023-02-26] MEDS ORDERED: lisinopriL 20 MG TAB PO SCH (09:00)
[2023-02-26] MEDS ORDERED: MAG SULF 2000 MG/WATER PREMIX 50 ML IV SCH (10:00)
[2023-02-26] MEDS: INSULIN LISPRO SLIDING SCALE 100 UNITS/ML VIAL SUBQ PRN ×3 (11:13→20:39)
[2023-02-26 12:13] LABS: T4 (THYROXINE) 8.6 ug/dL (4.5-12.0)
[2023-02-26] MEDS: GAUZE TP SCH (12:14)
[2023-02-26] MEDS: HYDROcodone/APAP 7.5/325 MG 1 TAB PO PRN ×3 (12:20→23:34)
[2023-02-26] MEDS: ZOLPIDEM 5 MG TAB PO PRN (22:07)
[2023-02-27] VITALS: BP 159/67; PULSE 66; RESP 18; TEMP 98.4; O2SAT 98
[2023-02-27] MEDS: HYDROcodone/APAP 7.5/325 MG 1 TAB PO PRN ×3 (03:09→16:53)
[2023-02-27 04:00] VITALS: BP 156/62; PULSE 62; PULSE 66; RESP 17; TEMP 98.7; O2SAT 98
[2023-02-27] MEDS: PIPERACILLIN/TAZOBACTAM 2.25 GM in DEXTROSE 5% 50 ML IV SCH ×3 (05:52→17:16)
[2023-02-27] MEDS: BLOOD GLUCOSE MONITORING 1 DEV DEV FS SCH ×4 (05:57→21:05)
[2023-02-27] MEDS: GABAPENTIN 300 MG CAP PO PRN (06:13)
[2023-02-27 08:00] VITALS: BP 145/55; PULSE 71; RESP 18; TEMP 97.8; O2SAT 98
[2023-02-27] MEDS: MORPHINE SULFATE 4 MG/ML SYR IVP PRN ×3 (08:27→20:18)
[2023-02-27] MEDS: metFORMIN 500 MG TAB PO SCH ×2 (08:30→16:53)
[2023-02-27] MEDS: ECOTRIN 81 MG TABEC PO SCH (08:31)
[2023-02-27] MEDS: PANTOPRAZOLE 40 MG TABEC PO SCH (08:31)
[2023-02-27] MEDS: FUROSEMIDE 40 MG TAB PO SCH (08:31)
[2023-02-27] MEDS: carvediloL 12.5 MG TAB PO SCH ×2 (08:32→20:19)
[2023-02-27] MEDS: ATORVASTATIN 20 MG TAB PO SCH (08:33)
[2023-02-27] MEDS: lisinopriL 20 MG TAB PO SCH (08:35)
[2023-02-27 08:37] VITALS: PULSE 69; RESP 19; O2SAT 97
[2023-02-27 09:12] LABS: BASOPHILS % (AUTO) 0.3 % (0.0-2.0); EOSINOPHILS # (AUTO) 1.1 K/uL (0-0.4); EOSINOPHILS % (AUTO) 9.4 % (0.0-4.0); HEMATOCRIT 33.5 % (36-48); HEMOGLOBIN 10.9 g/dL (12.0-16.0); LYMPHOCYTES # (AUTO) 2.6 K/uL (2.5-16.5); LYMPHOCYTES % (AUTO) 21.7 % (20.5-51.1); MEAN CORPUSCULAR HEMOGLOBIN 27 pg (27-31); MEAN CORPUSCULAR HGB CONC 33 g/dL (33-37); MEAN CORPUSCULAR VOLUME 83.1 fL (80-94); MONOCYTES # (AUTO) 1.1 K/uL (0.8-1.0); MONOCYTES % (AUTO) 8.9 % (1.7-9.3); NEUTROPHILS # (AUTO) 7.2 K/uL (1.8-7.7); NEUTROPHILS % (AUTO) 59.7 % (42.2-75.2); PLATELET COUNT (AUTO) 427 K/uL (140-450); RED BLOOD CELL COUNT(AUTO) 4.03 MIL/uL (4.20-5.40); RED CELL DISTRIBUTION WIDTH 13.9 % (11.6-13.7)
[2023-02-27 09:44] LABS: ALANINE AMINOTRANSFERASE 15 U/L (12-78); ALBUMIN 2.6 g/dL (3.4-5.0); ALKALINE PHOSPHATASE 94 U/L (50-136); ANION GAP 13.1 (8-16); ASPARTATE AMINOTRANSFERASE 22 U/L (15-37); CALCIUM 8.6 mg/dL (8.5-10.1); CARBON DIOXIDE 29.3 mmol/L (21-32); CHLORIDE 99 mmol/L (98-107); CREATININE 1.1 mg/dL (0.6-1.3); GLUCOSE 170 mg/dL (74-106); MAGNESIUM 1.8 mg/dL (1.8-2.4); POTASSIUM 4.4 mmol/L (3.5-5.1); SODIUM SERUM 137 mmol/L (136-145); TOTAL BILIRUBIN 0.3 mg/dL (0.0-1.0); TOTAL PROTEIN, SERUM 7.1 g/dL (6.4-8.2); UREA NITROGEN, BLOOD 29 mg/dL (7-18)
[2023-02-27] MEDS: INSULIN LISPRO SLIDING SCALE 100 UNITS/ML VIAL SUBQ PRN ×2 (11:03→21:04)
[2023-02-27] MEDS: GAUZE TP SCH (13:00)
[2023-02-27] MEDS: NACL 0.9% 1,000 ML IV SCH (16:52)
[2023-02-27 20:00] VITALS: BP 162/55; PULSE 70; RESP 16; TEMP 98.5; O2SAT 95
[2023-02-27 20:27] VITALS: BP 162/55; PULSE 70; RESP 16; TEMP 98.5
== END 2023-02-27 22:00 | disposition short-term general hospital (02) | DRG 344 ==
LOC: MED 05:15 → MTU 07:39
PROVIDERS: ADMIT Family Medicine; ATTEND Family Medicine
DX: E11.69 Type 2 diabetes mellitus with other specified complication (principal); M86.9 Osteomyelitis, unspecified; J96.01 Acute respiratory failure with hypoxia; I50.23 Acute on chronic systolic (congestive) heart failure; E11.621 Type 2 diabetes mellitus with foot ulcer; E44.0 Moderate protein-calorie malnutrition; E87.20 Acidosis, unspecified; I42.9 Cardiomyopathy, unspecified; L97.429 Non-pressure chronic ulcer of left heel and midfoot with unspecified severity; L03.116 Cellulitis of left lower limb; E11.51 Type 2 diabetes mellitus with diabetic peripheral angiopathy without gangrene; I11.0 Hypertensive heart disease with heart failure; I25.10 Atherosclerotic heart disease of native coronary artery without angina pectoris; E78.5 Hyperlipidemia, unspecified; S91.302A Unspecified open wound, left foot, initial encounter; X58.XXXA Exposure to other specified factors, initial encounter; Z79.2 Long term (current) use of antibiotics; Z79.899 Other long term (current) drug therapy; Y93.89 Activity, other specified; Y92.89 Other specified places as the place of occurrence of the external cause; Y99.8 Other external cause status; Z68.21 Body mass index [BMI] 21.0-21.9, adult
CPT/HCPCS: 36415; 71045; 73620; 80053; 82009; 82150; 82948; 83036; 83605; 83690; 83735; 83880; 84100; 84436; 84439; 84443; 84479; 85025; 85610; 85651; 85730; 86140; 87040; 87081; 96361; 96365; 96375; 96376; 99285; J0295; J1815; J2270; J2405; J2543; J3475; J7060; Q0092

== ENCOUNTER 2023-03-12 23:15 | Inpatient (IN) | payer MEDICAID ==
[~2023-03-12] VITALS: Ht 149.9 cm; Wt 52.6 kg
[2023-03-12 23:24] VITALS: BP 130/61; PULSE 82; RESP 18; TEMP 98; O2SAT 100
[2023-03-13] VITALS (8 sets, daily range): BP systolic 126–158; BP diastolic 69–71; PULSE 70–74; RESP 17–18; TEMP 97.1–97.5; O2SAT 95–100
[2023-03-13 00:46] LABS: BASOPHILS # (AUTO) 0.1 K/uL (0.00-0.22); EOSINOPHILS # (AUTO) 0.6 K/uL (0-0.4); EOSINOPHILS % (AUTO) 4.9 % (0.0-4.0); HEMATOCRIT 23.7 % (36-48); HEMOGLOBIN 7.8 g/dL (12.0-16.0); LYMPHOCYTES # (AUTO) 2.3 K/uL (2.5-16.5); LYMPHOCYTES % (AUTO) 17.9 % (20.5-51.1); MEAN CORPUSCULAR HEMOGLOBIN 28 pg (27-31); MEAN CORPUSCULAR HGB CONC 33 g/dL (33-37); MEAN CORPUSCULAR VOLUME 84.1 fL (80-94); MONOCYTES # (AUTO) 1.5 K/uL (0.8-1.0); MONOCYTES % (AUTO) 11.8 % (1.7-9.3); NEUTROPHILS # (AUTO) 8.3 K/uL (1.8-7.7); NEUTROPHILS % (AUTO) 64.4 % (42.2-75.2); PLATELET COUNT (AUTO) 535 K/uL (140-450); RED BLOOD CELL COUNT(AUTO) 2.82 MIL/uL (4.20-5.40); RED CELL DISTRIBUTION WIDTH 14.8 % (11.6-13.7); WHITE BLOOD COUNT (AUTO) 12.9 K/uL (4.8-10.8)
[2023-03-13 01:05] LABS: ALANINE AMINOTRANSFERASE 14 U/L (12-78); ALBUMIN 2.5 g/dL (3.4-5.0); ALKALINE PHOSPHATASE 108 U/L (50-136); ANION GAP 13.4 (8-16); ASPARTATE AMINOTRANSFERASE 21 U/L (15-37); CALCIUM 8.3 mg/dL (8.5-10.1); CARBON DIOXIDE 25.8 mmol/L (21-32); CHLORIDE 98 mmol/L (98-107); CREATININE 1.1 mg/dL (0.6-1.3); GLUCOSE 226 mg/dL (74-106); POTASSIUM 4.2 mmol/L (3.5-5.1); SODIUM SERUM 133 mmol/L (136-145); TOTAL BILIRUBIN 0.5 mg/dL (0.0-1.0); UREA NITROGEN, BLOOD 23 mg/dL (7-18)
[2023-03-13] MEDS ORDERED: FUROSEMIDE 40 MG/4 ML VIAL IVP ONE (01:50)
[2023-03-13] MEDS ORDERED: MORPHINE SULFATE 4 MG/ML SYR IM ONE (01:50)
[2023-03-13] MEDS ORDERED: FAMOTIDINE 20 MG/2 ML VIAL IVP ONE (01:50)
[2023-03-13] MEDS ORDERED: MORPHINE SULFATE 4 MG/ML SYR IVP ONE (02:40)
[2023-03-13] MEDS ORDERED: ASCO500T95 PO (03:58)
[2023-03-13] MEDS ORDERED: LEVO-481 PO (03:58)
[2023-03-13] MEDS ORDERED: ZINC220C9 PO (03:59)
[2023-03-13] MEDS ORDERED: CLOP75TA55 PO (04:00)
[2023-03-13] MEDS ORDERED: ONDANSETRON 4 MG/2 ML VIAL IM/IVP PRN (04:05)
[2023-03-13] MEDS ORDERED: DOCUSATE SODIUM 100 MG GELCAP PO PRN (04:05)
[2023-03-13] MEDS ORDERED: guaiFENesin DM 200/20 MG-10 ML 10 ML UDC PO PRN (04:05)
[2023-03-13] MEDS ORDERED: ZOLPIDEM 5 MG TAB PO PRN (04:05)
[2023-03-13] MEDS ORDERED: ACETAMINOPHEN 325 MG TAB PO PRN (04:05)
[2023-03-13] MEDS ORDERED: POTASSIUM CHLORIDE 10 MEQ TABER PO PRN (04:05)
[2023-03-13] MEDS ORDERED: MORPHINE SULFATE 2 MG/ML SYR IVP ONE (04:50)
[2023-03-13 06:53] LABS: APPEARANCE,URINE CLEAR (CLEAR); BILIRUBIN,URINE NEGATIVE (NEGATIVE); BLOOD, URINE NEGATIVE (NEGATIVE); COLOR,URINE YELLOW (YELLOW); LEUKOCYTE ESTERASE ,URINE NEGATIVE (NEGATIVE); NITRITE, URINE NEGATIVE (NEGATIVE); PH,URINE 7.5 (5.0-9.0); PROTEIN,URINE NEGATIVE (NEGATIVE); UGLUCOSE NEGATIVE (NEGATIVE); UROBILINOGEN,URINE 0.2 EU/dL (0.2 - 1)
[2023-03-13] MEDS ORDERED: FUROSEMIDE 40 MG/4 ML VIAL IVP SCH (09:00)
[2023-03-13] MEDS: FUROSEMIDE 40 MG/4 ML VIAL IVP SCH ×2 (09:54→21:01)
[2023-03-13] MEDS: PANTOPRAZOLE 40 MG TABEC PO SCH (09:54)
[2023-03-13] MEDS: HYDROcodone/APAP 7.5/325 MG 1 TAB PO PRN ×2 (11:32→21:03)
[2023-03-13] MEDS ORDERED: DEXTROSE 50% 50 ML SYR IVP PRN (14:40)
[2023-03-13] MEDS: BLOOD GLUCOSE MONITORING 1 DEV DEV FS SCH ×2 (15:19→21:03)
[2023-03-13] MEDS: INSULIN LISPRO SLIDING SCALE 100 UNITS/ML VIAL SUBQ PRN ×2 (15:49→21:09)
[2023-03-14 04:00] VITALS: BP 139/60; PULSE 78; RESP 17; TEMP 97.6; O2SAT 95
[2023-03-14 06:28] LABS: BASOPHILS # (AUTO) 0.1 K/uL (0.00-0.22); BASOPHILS % (AUTO) 0.9 % (0.0-2.0); EOSINOPHILS # (AUTO) 0.7 K/uL (0-0.4); EOSINOPHILS % (AUTO) 6.5 % (0.0-4.0); HEMATOCRIT 32.9 % (36-48); HEMOGLOBIN 11.1 g/dL (12.0-16.0); LYMPHOCYTES # (AUTO) 2.2 K/uL (2.5-16.5); LYMPHOCYTES % (AUTO) 21.3 % (20.5-51.1); MEAN CORPUSCULAR HEMOGLOBIN 28 pg (27-31); MEAN CORPUSCULAR HGB CONC 34 g/dL (33-37); MEAN CORPUSCULAR VOLUME 83.4 fL (80-94); MONOCYTES # (AUTO) 1.1 K/uL (0.8-1.0); MONOCYTES % (AUTO) 10.6 % (1.7-9.3); NEUTROPHILS # (AUTO) 6.3 K/uL (1.8-7.7); NEUTROPHILS % (AUTO) 60.7 % (42.2-75.2); PLATELET COUNT (AUTO) 592 K/uL (140-450); RED BLOOD CELL COUNT(AUTO) 3.95 MIL/uL (4.20-5.40); WHITE BLOOD COUNT (AUTO) 10.5 K/uL (4.8-10.8)
[2023-03-14] MEDS: INSULIN LISPRO SLIDING SCALE 100 UNITS/ML VIAL SUBQ PRN (06:34)
[2023-03-14] MEDS: BLOOD GLUCOSE MONITORING 1 DEV DEV FS SCH (06:34)
[2023-03-14 06:40] LABS: ALANINE AMINOTRANSFERASE 15 U/L (12-78); ALBUMIN 2.5 g/dL (3.4-5.0); ALKALINE PHOSPHATASE 112 U/L (50-136); ANION GAP 13.2 (8-16); ASPARTATE AMINOTRANSFERASE 22 U/L (15-37); CALCIUM 8.6 mg/dL (8.5-10.1); CARBON DIOXIDE 26.2 mmol/L (21-32); CHLORIDE 101 mmol/L (98-107); GLUCOSE 179 mg/dL (74-106); POTASSIUM 3.4 mmol/L (3.5-5.1); SODIUM SERUM 137 mmol/L (136-145); TOTAL BILIRUBIN 0.6 mg/dL (0.0-1.0); TOTAL PROTEIN, SERUM 7.2 g/dL (6.4-8.2); UREA NITROGEN, BLOOD 23 mg/dL (7-18)
[2023-03-14 08:00] VITALS: BP 141/85; PULSE 78; RESP 20; TEMP 99.8; O2SAT 96
[2023-03-14] MEDS: FUROSEMIDE 40 MG/4 ML VIAL IVP SCH (08:38)
[2023-03-14] MEDS: PANTOPRAZOLE 40 MG TABEC PO SCH (08:39)
[2023-03-14] MEDS: HYDROcodone/APAP 7.5/325 MG 1 TAB PO PRN (08:40)
[2023-03-14] MEDS ORDERED: carvediloL 12.5 MG TAB PO SCH (09:00)
[2023-03-14] MEDS ORDERED: ASPIRIN 81 MG TAB.CHEW PO SCH (09:00)
[2023-03-14] MEDS ORDERED: ATORVASTATIN 20 MG TAB PO SCH (09:00)
[2023-03-14] MEDS ORDERED: lisinopriL 20 MG TAB PO SCH (09:00)
[2023-03-14 09:10] VITALS: O2SAT 98
[2023-03-14] MEDS ORDERED: LISI40TA12 PO (10:06)
[2023-03-14] MEDS ORDERED: CARV12.5 PO (10:06)
[2023-03-14 11:17] VITALS: PULSE 78; RESP 18; O2SAT 98
== END 2023-03-14 12:35 | disposition home or self-care (01) | DRG 194 ==
LOC: MED 23:15 → MTU 03-13 04:05
PROVIDERS: ADMIT Student in an Organized Health Care Education/Training Program; ATTEND Student in an Organized Health Care Education/Training Program
PROC: 30233N1 Transfusion of Nonautologous Red Blood Cells into Peripheral Vein, Percutaneous Approach (ICD-10-PCS; principal; 2023-03-13)
DX: I11.0 Hypertensive heart disease with heart failure (principal); E44.0 Moderate protein-calorie malnutrition; E87.1 Hypo-osmolality and hyponatremia; L89.899 Pressure ulcer of other site, unspecified stage; D64.9 Anemia, unspecified; E11.65 Type 2 diabetes mellitus with hyperglycemia; D47.3 Essential (hemorrhagic) thrombocythemia; D72.829 Elevated white blood cell count, unspecified; I50.43 Acute on chronic combined systolic (congestive) and diastolic (congestive) heart failure; Z20.822 Contact with and (suspected) exposure to COVID-19; I25.5 Ischemic cardiomyopathy; R79.89 Other specified abnormal findings of blood chemistry; I25.10 Atherosclerotic heart disease of native coronary artery without angina pectoris; E78.5 Hyperlipidemia, unspecified; Z79.82 Long term (current) use of aspirin; Z68.23 Body mass index [BMI] 23.0-23.9, adult
CPT/HCPCS: 36415; 36430; 71045; 80053; 81003; 82948; 83880; 84484; 85025; 86886; 86900; 86901; 86920; 87081; 93005; 96374; 96375; 96376; 99291; J1815; J1940; J2270; J3490; P9016; Q0092